=== PATIENT | female | born 1975 | race African-American/Black ===

== ENCOUNTER 2019-08-28 07:32 | Emergency (ER) | payer OTHER, SELFPAY ==
[2019-08-28 07:42] VITALS: BP 141/83; PULSE 70; RESP 14; TEMP 36.4; O2SAT 100
--- NOTE | 2019-08-28 08:30 | ED.HA ---
HPI - Headache General Chief Complaint: Headache Stated Complaint: headache/10 weeks Time Seen by Provider: 08/28/19 07:36 History of Present Illness HPI Narrative: Patient is a 44-year-old female who presents the ER with headache. Has history of migraine headaches and this feels similar. Located originally behind the left eye but now over the lower forehead between the eyes. No change in vision or hearing. She has not been having vomiting but has had some mild nausea. She is currently 10 weeks . Reports she has not been eating or drinking much because nothing tastes good. She is mainly just been eating grapes she reports urinating more frequently but no dysuria/fever/chills. Patient is a G6, P0. Patient reports some slight dizziness with this headache today but not rotational or worsened by turning her head or rolling over. Related Data Home Medications Medication Instructions Recorded Confirmed 08/28/19 alendronate-vitamin D3 08/28/19 aspirin 81 mg PO DAILY 08/28/19 Allergies Allergy/AdvReac Type Severity Reaction Status Date / Time No Known Allergies Allergy Verified 08/28/19 07:45 Review of Systems Review of Systems: All systems reviewed & are unremarkable except as noted in HPI and below Constitutional: Constitutional: Denies chills and Denies fever(s) Eyes: Eyes: Denies change in vision and Denies photophobia ENT: Denies nasal congestion and Denies sore throat Respiratory: Respiratory: Denies cough, Denies dyspnea and Denies wheezing Gastrointestinal: Gastrointestinal: Denies abdominal pain, Denies diarrhea, Reports nausea and Denies vomiting Genitourinary: Genitourinary: Reports nocturia and Denies dysuria Neurologic: Denies dizziness, Reports headache(s), Denies focal weakness and Denies numbness [facility] Past Medical History Medical History (Updated 08/28/19 @ 11:16 by Fantasma Bocanegra MD) GERD (gastroesophageal reflux disease) Surgical History Surgical History (Updated 08/28/19 @ 08:32 by Fantasma Bocanegra MD) History of gastric bypass Family History Family History (Updated 10/06/15 @ 23:19 by DOCTOR UNKNOWN) Mother Hypertension Family history of diabetes mellitus in first degree relative Social History Social History Smoking status: Never smoker Alcohol intake: never Gender identity (if verbalized by the patient): Female Exam Narrative: Exam Narrative: GENERAL: Well-appearing, well-nourished, and in no acute distress. HEAD: Normocephalic, atraumatic. EYES: PERRL and EOMI. ENT: Mucous membranes moist. TMs normal bilaterally and ear canals free of debris. CHEST: Clear to auscultation. No respiratory distress. HEART: Regular rate and rhythm. Normal peripheral pulses. ABDOMEN: Soft, nontender, nondistended. EXTREMITIES: Normal range of motion. No edema. SKIN: Warm, dry, no rash. NEURO: Alert and oriented x3. Course Course Emergency Course: Headache and nausea improved with fluids and Phenergan. Tolerating oral fluids. Discharge home. Vital Signs Vital signs: Vital Signs Temperature 97.5 F L 08/28/19 07:42 Pulse Rate 70 08/28/19 07:42 Respiratory Rate 14 08/28/19 07:42 Blood Pressure 141/83 H 08/28/19 07:42 Pulse Oximetry 100 08/28/19 07:42 Temperature 97.5 F L 08/28/19 07:42 Pulse Rate 70 08/28/19 07:42 Respiratory Rate 14 08/28/19 07:42 Blood Pressure 141/83 H 08/28/19 07:42 Pulse Oximetry 100 08/28/19 07:42 MDM - Headache Lab Data Result diagrams: 08/28/19 08:30 08/28/19 08:30 Labs: Lab Results 08/28/19 08/28/19 08/28/19 Range/Units 08:30 08:30 08:43 WBC 6.7 (4.5-10.0) K/mm3 RBC 4.53 (4.2-5.4) M/mm3 Hgb 13.4 (12.0-15.0) g/dL Hct 39.7 (37.0-47.0) % MCV 87.6 (80-100) fl MCH 29.6 (26-34) pg MCHC 33.8 (32-36) g/dl RDW 13.2 (11.5-14.5) % Plt Count 304 (150-375) k/mm3 MPV 9.2 (7.4-10.4) fl
[2019-08-28] MEDS: SODIUM CHLORIDE 0.9% IV 1,000 ML 999 ML IV CONT (08:31)
[2019-08-28] MEDS: PROMETHAZINE HCL 25 MG/ML AMPUL 12.5 MG IV PUSH (08:32)
[2019-08-28 08:59] LABS: Basophils Percent Auto 0.2 % (0.2-1.2); Eosinophils Absolute Auto 0.1 K/mm3 (0-0.3); Eosinophils Percent Auto 0.9 % (0-4.4); Hematocrit 39.7 % (37.0-47.0); Hemoglobin 13.4 g/dL (12.0-15.0); Immature Granulocyte Absolute 0.02 K/mm3 (0.00-0.031); Immature Granulocyte Percent A 0.3 % (0-0.5); Lymphocytes Absolute Auto 1.85 K/mm3 (0.9-3.2); Lymphocytes Percent Auto 27.8 % (18.3-44.2); Mean Corpuscular HGB Conc 33.8 g/dl (32-36); Mean Corpuscular Hemoglobin 29.6 pg (26-34); Mean Corpuscular Volume 87.6 fl (80-100); Mean Platelet Volume 9.2 fl (7.4-10.4); Monocytes Absolute Auto 0.6 K/mm3 (0.1-0.6); Neutrophils Absolute Auto 4.1 K/mm3 (1.3-6.7); Neutrophils Percent Auto 61.8 % (45.5-73.1); Platelet Count Result 304 k/mm3 (150-375); Red Blood Count 4.53 M/mm3 (4.2-5.4); Red Cell Distribution Width 13.2 % (11.5-14.5); White Blood Count 6.7 K/mm3 (4.5-10.0)
[2019-08-28 09:07] LABS: Blood Urea Nitrogen 7 mg/dL (7-17); Calcium 8.5 mg/dL (8.4-10.2); Carbon Dioxide 23 mmol/L (22-30); Chloride 106 mmol/L (98-107); Estimated CRCL calculation 227 ml/min; Estimated Glomerular Filt Rate > 60; Glucose 88 mg/dL (65-105); Sodium 134 mmol/L (137-145)
[2019-08-28 09:08] LABS: Add Urine Microscopic? YES; Appearance Urine Clear (Clear); Bilirubin Urine Negative (Negative); Blood Urine Negative (Negative); Color Urine Yellow (Yellow); Glucose Urine UA Negative (Negative); Ketones Urine Negative (Negative); Leukocyte Esterase Ur Negative LEU/UL (Negative); Mucus Urine Rare /lpf; Nitrate Urine Negative (Negative); Protein Urine 1+ mg/dL (Negative); RBC Urine 0-2 /hpf (0-2); Specific Grav Ur 1.019 (1.001-1.035); Squamous Epithelial Cell Urine Many /hpf (Few); Urobilinogen Urine Negative mg/dL (<2.0); WBC Urine 0-3 /hpf
[2019-08-28 11:20] VITALS: BP 138/71; PULSE 75; RESP 14; O2SAT 99
== END 2019-08-28 11:27 | disposition home or self-care (01) ==
PROVIDERS: Emergency Provider Emergency Medicine
DX: O26.891 Other specified pregnancy related conditions, first trimester (principal); R51 Headache; Z79.82 Long term (current) use of aspirin; O99.841 Bariatric surgery status complicating pregnancy, first trimester; O99.611 Diseases of the digestive system complicating pregnancy, first trimester; K21.9 Gastro-esophageal reflux disease without esophagitis; Z3A.10 10 weeks gestation of pregnancy
CPT/HCPCS: 36415; 80048; 81001; 81025; 85025; 96361; 96374; 99284; J2550; J7030

== ENCOUNTER 2019-09-02 13:25 | Outpatient (CLI) | payer OTHER, SELFPAY ==
--- NOTE | ~2019-09-02 | US_ITS ---
EXAMINATION: US OB <= 14 weeks fetus DATE: 09/02/2019 14:38 INDICATION: First trimester dating, history of spontaneous TECHNIQUE: Real-time pelvic transabdominal and transvaginal ultrasound was performed. COMPARISON: None. FINDINGS: The uterus measures 14.0 x 7.7 x 7.0 cm. There is an intrauterine gestational sac. A yolk sac is identified. heart motion is identified measuring 155 beats per minute (bpm) by M-mode Do ppler. The crown rump length measures 3.9 cm , which correlates with an estimated gestational a ge of 10 weeks and 6 day(s) (+/-) 7 day(s). The left ovary is not visualized however no left adnexal abnormality is seen. The right ovary measure s 5.0 x 3.9 x 2.8 cm. There is no free fluid in the pelvis. IMPRESSION: 1. Live intrauterine with an estimated gestational age of 10 weeks and 6 day(s) (+/-) 7 day (s) and an estimated delivery date of 03/24/2020. Reviewed, dictated and finalized at location A. IMPRESSION: 1. Live intrauterine with an estimated gestational age of 10 weeks an d 6 day(s) (+/-) 7 day(s) and an estimated delivery date of 03/24/2020.
== END 2019-09-02 13:26 | disposition home or self-care (01) ==
PROVIDERS: PCP Physician Assistant; Visit Provider Obstetrics & Gynecology Gynecology
DX: O26.21 Pregnancy care for patient with recurrent pregnancy loss, first trimester (principal); Z3A.10 10 weeks gestation of pregnancy
CPT/HCPCS: 76801

== ENCOUNTER 2020-02-10 09:57 | Outpatient (CLI) | payer OTHER, SELFPAY ==
--- NOTE | ~2020-02-10 | US_ITS ---
EXAMINATION: US OB limited w BPP DATE: 02/10/2020 13:19 ENROBER TENDER INDICATION: Nonreactive tracing. TECHNIQUE: Real-time transabdominal obstetric ultrasound. FINDINGS: 09/02/2019 There is a single living fetus in breech presentation. The placenta is anterior without placenta pre via. cardiac activity and movement is noted with a heart rate of 151 beats per minute. A FI is normal measuring 20.4 cm. Biophysical profile: breathin of 2 movement: 2 of 2 tone: 2 of 2 Amniotic flud pocket: 2 of 2 Total score: 8 of 8 IMPRESSION: 1. Single living intrauterine in breech presentation. 2: Total biophysical profile score of 8/8. Reviewed, dictated and finalized at location B. BER TENDER
[2020-02-10 10:27] VITALS: BP 104/78; PULSE 86
[2020-02-10 10:31] VITALS: BP 75/56; PULSE 86
[2020-02-10 10:46] VITALS: BP 89/51; PULSE 70
[2020-02-10 11:04] LABS: Basophils Percent Auto 0.3 % (0.2-1.2); Eosinophils Absolute Auto 0.1 K/mm3 (0-0.3); Eosinophils Percent Auto 1.1 % (0-4.4); Hematocrit 35.2 % (37.0-47.0); Immature Granulocyte Absolute 0.08 K/mm3 (0.00-0.031); Immature Granulocyte Percent A 1.1 % (0-0.5); Lymphocytes Absolute Auto 1.42 K/mm3 (0.9-3.2); Lymphocytes Percent Auto 18.7 % (18.3-44.2); Mean Corpuscular HGB Conc 34.1 g/dl (32-36); Mean Corpuscular Hemoglobin 30.4 pg (26-34); Mean Corpuscular Volume 89.1 fl (80-100); Mean Platelet Volume 9.2 fl (7.4-10.4); Monocytes Absolute Auto 0.7 K/mm3 (0.1-0.6); Monocytes Percent Auto 9.3 % (2.6-8.5); Neutrophils Absolute Auto 5.3 K/mm3 (1.3-6.7); Neutrophils Percent Auto 69.5 % (45.5-73.1); Platelet Count Result 254 k/mm3 (150-375); Red Blood Count 3.95 M/mm3 (4.2-5.4); Red Cell Distribution Width 12.4 % (11.5-14.5); White Blood Count 7.6 K/mm3 (4.5-10.0)
[2020-02-10 11:11] LABS: Add Urine Microscopic? YES; Appearance Urine Cloudy (Clear); Bacteria Urine Trace /hpf; Bilirubin Urine Negative (Negative); Blood Urine 1+ (Negative); Color Urine Yellow (Yellow); Glucose Urine UA Negative (Negative); Ketones Urine Negative (Negative); Leukocyte Esterase Ur Negative LEU/UL (NEGATIVE); Mucus Urine Rare /lpf; Nitrate Urine Negative (Negative); Protein Urine Negative (Negative); Specific Grav Ur 1.015 (1.001-1.035); Squamous Epithelial Cell Urine Many /hpf (Few); WBC Urine 0-3 /hpf (0-3)
[2020-02-10 11:15] LABS: Creatinine Urine 129.8 mg/dL; Total Protein Urine Random 9 mg/dL
[2020-02-10 11:17] LABS: Alanine Aminotransferase 15 U/L (4-35); Albumin Level 3.2 g/dL (3.5-5.1); Alkaline Phosphatase 183 U/L (38-126); Anion Gap 3 mmol/L (8-16); Aspartate Amino Transferase 21 U/L (14-36); Bilirubin,Total 0.4 mg/dL (0.2-1.3); Blood Urea Nitrogen 4 mg/dL (7-17); Calcium 8.6 mg/dL (8.4-10.2); Carbon Dioxide 26 mmol/L (22-30); Chloride 105 mmol/L (98-107); Estimated Glomerular Filt Rate > 60; Glucose 82 mg/dL (65-105); Potassium 3.3 mmol/L (3.4-5.0); Sodium 134 mmol/L (137-145)
[2020-02-10 14:03] VITALS: BP 104/78; PULSE 83
== END 2020-02-10 13:45 | disposition home or self-care (01) ==
LOC: ANHOBOP 10:05 → ANHOBPP 10:06
PROVIDERS: PCP Physician Assistant; Visit Provider Obstetrics & Gynecology Gynecology
DX: O13.9 Gestational [pregnancy-induced] hypertension without significant proteinuria, unspecified trimester (principal); Z3A.00 Weeks of gestation of pregnancy not specified
CPT/HCPCS: 36415; 59025; 76815; 76819; 80053; 81001; 82570; 84156; 84550; 85025; 87086; 87088; 99199

== ENCOUNTER 2020-02-15 09:20 | Observation (INO) | payer OTHER, SELFPAY ==
[2020-02-15 09:46] VITALS: BP 119/77; PULSE 90
[2020-02-15 10:01] VITALS: BP 130/66; PULSE 90
[2020-02-15 10:04] LABS: Basophils Percent Auto 0.1 % (0.2-1.2); Eosinophils Absolute Auto 0.1 K/mm3 (0-0.3); Eosinophils Percent Auto 1.3 % (0-4.4); Hematocrit 35.2 % (37.0-47.0); Hemoglobin 11.7 g/dL (12.0-15.0); Immature Granulocyte Absolute 0.08 K/mm3 (0.00-0.031); Immature Granulocyte Percent A 0.9 % (0-0.5); Lymphocytes Absolute Auto 1.67 K/mm3 (0.9-3.2); Lymphocytes Percent Auto 19.1 % (18.3-44.2); Mean Corpuscular HGB Conc 33.2 g/dl (32-36); Mean Corpuscular Hemoglobin 29.6 pg (26-34); Mean Corpuscular Volume 89.1 fl (80-100); Mean Platelet Volume 8.9 fl (7.4-10.4); Monocytes Absolute Auto 0.7 K/mm3 (0.1-0.6); Monocytes Percent Auto 7.6 % (2.6-8.5); Neutrophils Absolute Auto 6.2 K/mm3 (1.3-6.7); Platelet Count Result 265 k/mm3 (150-375); Red Blood Count 3.95 M/mm3 (4.2-5.4); Red Cell Distribution Width 12.5 % (11.5-14.5); White Blood Count 8.7 K/mm3 (4.5-10.0)
[2020-02-15 10:16] VITALS: BP 99/50; PULSE 86
[2020-02-15 10:22] LABS: Alanine Aminotransferase 12 U/L (4-35); Albumin Level 3.2 g/dL (3.5-5.1); Alkaline Phosphatase 193 U/L (38-126); Anion Gap 5 mmol/L (8-16); Aspartate Amino Transferase 18 U/L (14-36); Bilirubin,Total 0.4 mg/dL (0.2-1.3); Blood Urea Nitrogen 6 mg/dL (7-17); Calcium 8.6 mg/dL (8.4-10.2); Carbon Dioxide 24 mmol/L (22-30); Chloride 105 mmol/L (98-107); Estimated Glomerular Filt Rate > 60; Glucose 101 mg/dL (65-105); Potassium 3.7 mmol/L (3.4-5.0); Sodium 134 mmol/L (137-145)
[2020-02-15 10:30] VITALS: BP 130/66; PULSE 83; RESP 16; TEMP 36.8; BMI 51.4
--- NOTE | 2020-02-17 07:50 | PM.OBTRLD ---
OB - Triage/Final Diagnosis Evaluation Laboratory results: Laboratory Tests 02/15/20 02/15/20 09:58 09:58 WBC 8.7 RBC 3.95 L Hgb 11.7 L Hct 35.2 L MCV 89.1 MCH 29.6 MCHC 33.2 RDW 12.5 Plt Count 265 MPV 8.9 Immature Gran % (Auto) 0.9 H Neut % (Auto) 71.0 Lymph % (Auto) 19.1 [place] % (Auto) 7.6 Eos % (Auto) 1.3 Baso % (Auto) 0.1 L Lymph # (Auto) 1.67 [place] # (Auto) 0.7 H Eos # (Auto) 0.1 Baso # (Auto) 0.0 Abs Immat Gran (auto) 0.08 H Absolute Neuts (auto) 6.2 Absolute Nucleated RBC 0.0 Nucleated RBC % 0.0 Sodium 134 L Potassium 3.7 Chloride 105 Carbon Dioxide 24 Anion Gap 5 L BUN 6 L Creatinine 0.50 L Estim Creat Clear Calc Not Reportable Estimated GFR > 60 Glucose 101 Uric Acid 5.0 Calcium 8.6 Total Bilirubin 0.4 AST 18 ALT 12 Alkaline Phosphatase 193 H Total Protein 6.0 L Albumin 3.2 L Final Diagnosis (1) PIH ( induced hypertension): Code(s): O13.9 - Gestational [-induced] hypertension without significant proteinuria, unspecified trimester Status: Acute
== END 2020-02-15 11:10 | disposition home or self-care (01) ==
PROVIDERS: Admitting Provider Obstetrics & Gynecology Gynecology; PCP Physician Assistant; Visit Provider Obstetrics & Gynecology Gynecology
DX: O13.9 Gestational [pregnancy-induced] hypertension without significant proteinuria, unspecified trimester (principal); Z3A.00 Weeks of gestation of pregnancy not specified
CPT/HCPCS: 36415; 59025; 80053; 84550; 85025; G0378; G0379

== ENCOUNTER 2020-02-16 12:09 | Outpatient (NON) | payer OTHER, SELFPAY ==
[2020-02-16 12:35] VITALS: BMI 51.7
[2020-02-16 12:55] LABS: Collection Time Urine 24 HOURS; Total Volume 24 Hour Urine 1700 ml
[2020-02-16 13:03] LABS: Creatinine Clearance Urine 121.5 ml/min (75-125); Creatinine Urine 77.7 mg/dL; Patient Weight 350 Lbs; Total Protein Urine 24 Hr 136 MG/DAY (28-141); Total Protein Urine Random 8 mg/dL
== END 2020-02-16 12:10 ==
LOC: ANHOBOP 12:11
PROVIDERS: PCP Physician Assistant; Visit Provider Obstetrics & Gynecology Gynecology
DX: R51.9 Headache, unspecified (principal); Z20.828 Contact with and (suspected) exposure to other viral communicable diseases
CPT/HCPCS: 81050; 82575; 84156

== ENCOUNTER 2020-03-11 10:39 | Outpatient (RCR) | payer OTHER, SELFPAY ==
--- NOTE | ~2020-03-11 | US_ITS ---
EXAMINATION: US OB BPP wo non-stress DATE: 03/11/2020 13:04 INDICATION: Nonreactive nonstress test. TECHNIQUE: Real-time pelvic ultrasound was performed. The interpreting radiologist was not present fo r the study. COMPARISON: 02/10/2020 FINDINGS: There is a single living fetus in vertex presentation. The placenta is anterior. heart rate is 150 beats per minute (bpm). Biophysical profile performed by the technologist: breathing (30 sec sustained breathing in 30 minutes): 2 out of 2 movement (3 gross body movements in 30 minutes): 2 out of 2 tone (one episode of encyfcf-rvwtuzhqo-aobmwxm limb movement): 2 out of 2 Amniotic fluid pocket (2 cm): 2 out of 2 (largest fluid pocket measures 8.4 cm) Total score: 8 out of 8 IMPRESSION: 1. Single living fetus in vertex presentation with heart rate of 150 bpm. 2. Biophysical profile 8 out of 8. Reviewed, dictated and finalized at location A. RFACE ENGINEER
[2020-03-11 13:10] VITALS: BP 132/61; PULSE 92
== END 2020-03-16 07:29 | disposition home or self-care (01) ==
LOC: ANHOBOP 10:39
PROVIDERS: PCP Physician Assistant; Visit Provider Obstetrics & Gynecology Gynecology
DX: O16.3 Unspecified maternal hypertension, third trimester (principal); O26.03 Excessive weight gain in pregnancy, third trimester; Z3A.38 38 weeks gestation of pregnancy
CPT/HCPCS: 59025; 76819

== ENCOUNTER 2020-03-13 12:06 | Inpatient (IN) | payer OTHER, SELFPAY ==
[2020-03-13] VITALS (41 sets, daily range): BP systolic 88–138; BP diastolic 38–87; PULSE 78–147; TEMP 36.1–36.3; BMI 52.5
--- NOTE | 2020-03-13 12:08 | LDADM ---
This patient, Flavia Sol, was admitted to Labor/Delivery/Recovery 105 on 03/13/20 at 12:06. Plans for labor, pain management and were discussed with patient. Patient/family oriented to hospital policies and general routines including ID bracelet, bed and alarms, visiting hours, pain management, procedures, bathroom and other care routines, personal items, smoking policy, room service/diet and guest tray routines, infant security routines, and visiting hours. Patient/Family are encouraged to report perceived risks to care and to ask questions if they do not understand what they are told or what they should do. See OBIX for further documentation.
[2020-03-13 12:54] LABS: Basophils Percent Auto 0.1 % (0.2-1.2); Eosinophils Percent Auto 0.2 % (0-4.4); Hematocrit 38.1 % (37.0-47.0); Immature Granulocyte Absolute 0.07 K/mm3 (0.00-0.031); Immature Granulocyte Percent A 0.9 % (0-0.5); Lymphocytes Absolute Auto 1.71 K/mm3 (0.9-3.2); Lymphocytes Percent Auto 21.1 % (18.3-44.2); Mean Corpuscular HGB Conc 34.1 g/dl (32-36); Mean Corpuscular Hemoglobin 30.1 pg (26-34); Mean Corpuscular Volume 88.2 fl (80-100); Mean Platelet Volume 8.9 fl (7.4-10.4); Monocytes Absolute Auto 0.8 K/mm3 (0.1-0.6); Monocytes Percent Auto 9.5 % (2.6-8.5); Neutrophils Absolute Auto 5.5 K/mm3 (1.3-6.7); Neutrophils Percent Auto 68.2 % (45.5-73.1); Platelet Count Result 285 k/mm3 (150-375); Red Blood Count 4.32 M/mm3 (4.2-5.4); Red Cell Distribution Width 12.8 % (11.5-14.5); White Blood Count 8.1 K/mm3 (4.5-10.0)
[2020-03-13] MEDS: LACTATED RINGERS 1,000 ML 125 ML IV CONT ×2 (12:59→16:08)
[2020-03-13] MEDS: AMPICILLIN 2 GM/NS 100 ML 2 GM/100 ML BAG IVPB (13:00)
[2020-03-13 13:23] LABS: Glucose Point of Care 71 (65-105)
[2020-03-13] MEDS: DINOPROSTONE 10 MG VAG INSERT VAGINAL (14:28)
[2020-03-13] MEDS: AMPICILLIN 1 GM/NS 50 ML 1 GM/50 ML BAG IVPB ×2 (16:55→21:00)
[2020-03-13 17:05] LABS: Glucose Point of Care 76 (65-105)
[2020-03-13] MEDS: ACETAMINOPHEN 500 MG TABLET 1000 MG PO (21:53)
[2020-03-13] MEDS: INSULIN HUMAN NPH (*BKC) 100 UNITS/ML 6 UNITS SUB-Q (21:54)
[2020-03-13 21:59] LABS: Glucose Point of Care 214 (65-105)
[2020-03-14] VITALS (66 sets, daily range): BP systolic 103–155; BP diastolic 57–106; PULSE 74–102; TEMP 36.1–37.1
[2020-03-14] MEDS: AMPICILLIN 1 GM/NS 50 ML 1 GM/50 ML BAG IVPB ×6 (01:00→21:36)
[2020-03-14] MEDS: LACTATED RINGERS 1,000 ML 125 ML IV CONT ×2 (01:11→07:17)
[2020-03-14 01:18] LABS: Glucose Point of Care 86 (65-105)
[2020-03-14 05:13] LABS: Glucose Point of Care 90 (65-105)
[2020-03-14] MEDS: OXYTOCIN 30 UNITS/NS 500 ML 30 UNITS/500 ML BAG IV CONT (06:54)
--- NOTE | 2020-03-14 07:47 | P.HP_ITS ---
Obstetrics - Admit Note Admission Note: record reviewed. No pertinent additions to the history and/or any subsequent changes in the physical findings that are not consistent with the expected course of the were found. Additions to the history and/or subsequent changes in the physical findings follow. Here for MIL from [facility] office due to decreased variability and decel x 1 they recommended delivery. Cervadil out this am. Now Pitocin running. Cervix Ft/50/-3 Vtx. FHTs minimal variability but no decels. Will attempt continued induction. Patient aware at increased risk of csection for indications.
[2020-03-14 08:59] LABS: Glucose Point of Care 81 (65-105)
[2020-03-14 12:56] LABS: Glucose Point of Care 90 (65-105)
[2020-03-14 17:10] LABS: Glucose Point of Care 76 (65-105)
[2020-03-14] MEDS: fentaNYL CITRATE INJ (*CRX) 100 MCG/2 ML VIAL 50 MCG IV PUSH ×2 (20:01→23:45)
--- NOTE | 2020-03-14 20:20 | PM.OBPNVD ---
OB - PN: Subj Subjective Date/time seen: 03/14/20 20:20 Interval history: Patient given dose of fentanyl to relax cervix /-2 AROM with clear fluid continue MIL OB - PN: Obj Data Labs CBC & Chem 7: 03/13/20 12:48 Labs: Laboratory Results - last 24 hr 03/13/20 03/14/20 03/14/20 21:00 01:03 05:08 POC Capillary Glucose 214 H 86 90 03/14/20 03/14/20 03/14/20 08:56 12:52 17:02 POC Capillary Glucose 81 90 76 OB - PN A/P Time Spent With Patient Time: Total time spent is greater than 50% in coordination of care (as documented) at patient's floor/unit and/or counseling patient:
[2020-03-14 21:41] LABS: Glucose Point of Care 83 (65-105)
[2020-03-15] VITALS (181 sets, daily range): BP systolic 68–148; BP diastolic 39–103; PULSE 60–137; RESP 15–18; TEMP 36.4–36.9; O2SAT 89–100
[2020-03-15] MEDS: LACTATED RINGERS 1,000 ML 125 ML IV CONT ×2 (01:04→11:25)
[2020-03-15] MEDS: AMPICILLIN 1 GM/NS 50 ML 1 GM/50 ML BAG IVPB ×3 (01:19→10:23)
[2020-03-15 01:26] LABS: Glucose Point of Care 83 (65-105)
[2020-03-15] MEDS: ACETAMINOPHEN 500 MG TABLET 1000 MG PO (01:37)
[2020-03-15 06:00] LABS: Glucose Point of Care 82 (65-105)
[2020-03-15] MEDS: OXYTOCIN 30 UNITS/NS 500 ML 30 UNITS/500 ML BAG IV CONT (06:45)
[2020-03-15 07:04] LABS: Rapid Plasma Reagin Non-Reactive (NonReactive)
--- NOTE | 2020-03-15 08:06 | P.PNAN_ITS ---
Anes - Eval Pre Procedure Procedure: Labor Epidural Date/Time: 03/15/20 08:06 Surgeon: Evette Preop Diagnosis: Labor Pain Pre Op Diagnosis: Induction of Labor Patient Data Age: 45 Gender: F Height: 5 ft 9 in Weight: 161.5 kg Last Vital Signs Temp 36.8 C 03/15/20 06:15 Pulse 98 03/15/20 08:00 BP 126/85 03/15/20 08:00 Pulse Ox 98 03/15/20 08:03 Allergies Allergy/AdvReac Type Severity Reaction Status Date / Time SEAFOOD Allergy Itching Uncoded 02/22/20 13:32 Home Medications Medication Instructions Recorded Confirmed Type 08/28/19 History aspirin 81 mg PO DAILY 08/28/19 03/14/20 History insulin NPH isoph U-100 human 6 unit SUBCUT HS 03/13/20 03/13/20 History [Humulin N NPH U-100 Insulin] Laboratory Tests 03/13/20 03/14/20 03/14/20 12:48 08:56 12:52 POC Capillary Glucose 81 mg/dl mg/dl 90 mg/dl mg/dl (65-105) (65-105) RPR Non-reactive (NonReactive) 03/14/20 03/14/20 03/15/20 17:02 21:35 01:18 POC Capillary Glucose 76 mg/dl mg/dl 83 mg/dl mg/dl 83 mg/dl mg/dl (65-105) (65-105) (65-105) RPR 03/15/20 05:57 POC Capillary Glucose 82 mg/dl mg/dl (65-105) RPR : gestational age (SYLVIA 03/24/20) Patient hx anesthesia problems: none Family hx anesthesia problems: none [facility] Past Medical History Medical History GERD (gastroesophageal reflux disease) Surgical History Surgical History History of gastric bypass Family History Family History Mother Family history of diabetes mellitus in first degree relative Hypertension Fatty liver Sibling Hypertension Social History Social History Smoking status: Never smoker Second hand tobacco smoke exposure: Yes Alcohol intake: never Substance use: never Gender identity (if verbalized by the patient): Female Spiritual care concerns: No Exam Day of Procedure 03/15/20 08:06 Patient weight: super morbidly obese Heart: regular rate and rhythm Lungs: normal air movement Airway: Mallampati scale class III Neurological: alert and oriented
[2020-03-15 10:25] LABS: Glucose Point of Care 78 (65-105)
--- NOTE | 2020-03-15 12:02 | PM.IMHP ---
H&P: HPI History of Present Illness Date/Time: 03/15/20 12:02 Chief Complaint: intolerance labor Narrative: Flavia Sol is a 45 year old female at 39 weeks by ultrasound. Patient admitted for IOL due to decels on NST with MFM. complicated by obesity, A2gdm, and recurrent miscarriages. Patient also desires permanent sterilization. Review of Systems Review of Systems: All systems reviewed & are unremarkable except as noted in HPI and below PMFSH Past Medical History Medical History GERD (gastroesophageal reflux disease) Obesity affecting Surgical History Surgical History History of gastric bypass Family History Family History Mother Family history of diabetes mellitus in first degree relative Hypertension Fatty liver Sibling Hypertension Social History Social History Smoking status: Never smoker Second hand tobacco smoke exposure: Yes Alcohol intake: never Substance use: never Gender identity (if verbalized by the patient): Female Spiritual care concerns: No Meds Home Medications and Allergies Home Medications Medication Instructions Recorded Confirmed Type 08/28/19 History aspirin 81 mg PO DAILY 08/28/19 03/14/20 History insulin NPH isoph U-100 human 6 unit SUBCUT HS 03/13/20 03/13/20 History [Humulin N NPH U-100 Insulin] Allergies Allergy/AdvReac Type Severity Reaction Status Date / Time SEAFOOD Allergy Itching Uncoded 02/22/20 13:32 Vital Signs Vital Signs - 24 hr 03/14/20 12:55 03/14/20 15:04 03/14/20 15:31 Temperature 37.1 C Pulse Rate 85 90 Blood Pressure 123/83 124/87 Pulse Oximetry 03/14/20 15:45 03/14/20 16:00 03/14/20 16:11 Temperature 36.7 C Pulse Rate 89 89 Blood Pressure 121/80 129/89 Pulse Oximetry 03/14/20 16:15 03/14/20 16:30 03/14/20 16:45 Temperature Pulse Rate 91 87 90 Blood Pressure 123/72 135/87 119/68 Pulse Oximetry 03/14/20 17:00 03/14/20 17:15 03/14/20 17:30 Temperature 36.7 C Pulse Rate 88 99 90 Blood Pressure 115/87 132/94 H 130/80 Pulse Oximetry 03/14/20 17:52 03/14/20 18:00 03/14/20 18:15 Temperature Pulse Rate 95 101 H 100 Blood Pressure 123/84 128/83 118/64 Pulse Oximetry 03/14/20 18:30 03/14/20 18:45 03/14/20 19:00 Temperature Pulse Rate 97 95 91 Blood Pressure 111/64 114/82 110/68 Pulse Oximetry 03/14/20 19:15 03/14/20 19:45 03/14/20 20:00 Temperature Pulse Rate 85 88 95 Blood Pressure 122/81 137/89 134/92 H Pulse Oximetry 03/14/20 20:15 03/14/20 20:30 03/14/20 20:45 Temperature Pulse Rate 97 89 89 Blood Pressure 139/86 140/94 H 137/86 Pulse Oximetry 03/14/20 21:00 03/14/20 21:15 03/14/20 21:33 Temperature 36.6 C Pulse Rate 88 91 85 Blood Pressure 140/90 136/99 H 135/80 Pulse Oximetry 03/14/20 21:45 03/14/20 22:00 03/14/20 22:15 Temperature Pulse Rate 90 89 88 Blood Pressure 131/92 H 138/86 127/88 Pulse Oximetry 03/14/20 22:30 03/14/20 22:45 03/14/20 23:00 Temperature Pulse Rate 89 87 91 Blood Pressure 133/85 138/88 138/83 Pulse Oximetry 03/14/20 23:15 03/14/20 23:30 03/14/20 23:45 Temperature Pulse Rate 90 91 95 Blood Pressure 134/90 136/86 150/106 H Pulse Oximetry 03/14/20 23:50 03/15/20 00:00 03/15/20 00:30 Temperature 36.5 C Pulse Rate 94 94 Blood Pressure 140/95 H 148/94 H Pulse Oximetry 03/15/20 00:45 03/15/20 01:00 03/15/20 01:19 Temperature 36.6 C Pulse Rate 88 92 Blood Pressure 140/92 H 132/85 Pulse Oximetry 03/15/20 01:30 03/15/20 01:45 03/15/20 02:00 Temperature Pulse Rate 93 97 91 Blood Pressure 134/82 114/88 126/80 Pulse Oximetry 03/15/20 02:15 03/15/20 02:1
[2020-03-15] MEDS: ACETAMINOPHEN 325 MG TABLET 650 MG PO (16:31)
[2020-03-15] MEDS: DOCUSATE SODIUM 100 MG CAPSULE PO (16:31)
--- NOTE | 2020-03-15 16:33 | OBPPTRN ---
1527 Patient transferred to post room #285 via stretcher. Support person present. Oriented to unit, room, information board, rooming in, admission packet and security measures. Patient verbalizes understanding.
[2020-03-15] MEDS: diphenhydrAMINE HCl INJ 50 MG/ML VIAL 12.5 MG IV PUSH (17:32)
[2020-03-15] MEDS: HYDROcodone/acetaminophen (*CRX) 10-325 MG TABLET 1 TAB PO (21:05)
[2020-03-15] MEDS: DEXTROSE 5%/0.45% SOD CHL 1,000 ML 125 ML IV CONT (21:05)
[2020-03-15] MEDS: LORATADINE 10 MG TABLET PO (21:16)
[2020-03-16 01:00] VITALS: BP 121/75; PULSE 101; RESP 18; TEMP 36.6; O2SAT 98
[2020-03-16 05:00] VITALS: BP 105/69; PULSE 75; RESP 16; TEMP 36.2; O2SAT 100
[2020-03-16 05:05] LABS: Basophils Percent Auto 0.2 % (0.2-1.2); Eosinophils Absolute Auto 0.1 K/mm3 (0-0.3); Eosinophils Percent Auto 0.4 % (0-4.4); Hemoglobin 9.9 g/dL (12.0-15.0); Immature Granulocyte Absolute 0.08 K/mm3 (0.00-0.031); Immature Granulocyte Percent A 0.7 % (0-0.5); Lymphocytes Absolute Auto 1.88 K/mm3 (0.9-3.2); Lymphocytes Percent Auto 15.6 % (18.3-44.2); Mean Corpuscular HGB Conc 34.1 g/dl (32-36); Mean Corpuscular Hemoglobin 29.6 pg (26-34); Mean Corpuscular Volume 86.8 fl (80-100); Mean Platelet Volume 8.9 fl (7.4-10.4); Monocytes Absolute Auto 1.7 K/mm3 (0.1-0.6); Neutrophils Absolute Auto 8.3 K/mm3 (1.3-6.7); Neutrophils Percent Auto 69.1 % (45.5-73.1); Platelet Count Result 228 k/mm3 (150-375); Red Blood Count 3.34 M/mm3 (4.2-5.4); Red Cell Distribution Width 12.4 % (11.5-14.5); White Blood Count 12.1 K/mm3 (4.5-10.0)
[2020-03-16] MEDS: DEXTROSE 5%/0.45% SOD CHL 1,000 ML 125 ML IV CONT (05:45)
[2020-03-16] MEDS: HYDROcodone/acetaminophen (*CRX) 10-325 MG TABLET 1 TAB PO ×3 (05:46→19:35)
[2020-03-16] MEDS: DOCUSATE SODIUM 100 MG CAPSULE PO ×2 (07:31→16:22)
[2020-03-16] MEDS: POLYSACCHARIDE IRON COMPLEX 150 MG CAPSULE PO ×2 (07:32→17:00)
[2020-03-16] MEDS: MULTIVIT/MIN/PREN/FOL AC/IRON TABLET 1 TAB PO (07:32)
[2020-03-16] MEDS: LORATADINE 10 MG TABLET PO (07:32)
--- NOTE | 2020-03-16 07:46 | P.PNOB_ITS ---
OB - PN: Subj Subjective Date/time seen: 03/16/20 07:46 Interval history: Patient given dose of fentanyl to relax cervix /2 AROM with clear fluid continue MIL Patient comments: pain well controlled and other (severe itching) baby status: doing well OB - PN: Obj Data Labs CBC & Chem 7: 03/16/20 04:54 Labs: Laboratory Results - last 24 hr 03/15/20 03/16/20 10:22 04:54 WBC 12.1 H RBC 3.34 L Hgb 9.9 L D Hct 29.0 L MCV 86.8 MCH 29.6 MCHC 34.1 RDW 12.4 Plt Count 228 MPV 8.9 Immature Gran % (Auto) 0.7 H Neut % (Auto) 69.1 Lymph % (Auto) 15.6 L [place] % (Auto) 14.0 H Eos % (Auto) 0.4 Baso % (Auto) 0.2 Lymph # (Auto) 1.88 [place] # (Auto) 1.7 H Eos # (Auto) 0.1 Baso # (Auto) 0.0 Abs Immat Gran (auto) 0.08 H Absolute Neuts (auto) 8.3 H Absolute Nucleated RBC 0.0 Nucleated RBC % 0.0 POC Capillary Glucose 78 OB - PN A/P Plan day: 1 Plan: routine care Time Spent With Patient Time: Total time spent is greater than 50% in coordination of care (as documented) at patient's floor/unit and/or counseling patient: Exam Narrative: Exam Narrative: inc c/d/i : Bimanual exam- vagina & uterus: other (Uterus firm, nt @U)
[2020-03-16 07:50] VITALS: PULSE 88; RESP 18; O2SAT 99
[2020-03-16 08:40] VITALS: BP 128/74; PULSE 88; RESP 18; TEMP 37.1; O2SAT 99
--- NOTE | 2020-03-16 10:11 | PM.OBPRVD ---
OB - Delivery Note Procedure Delivery date: 03/16/20 Procedure: Procedures Operation Date: 03/15/20 12:00 Actual Procedures Side Surgeon p Section Arun Benoit MD events: Gestational Diabetes and Labor Induction Intrapartal events: Intolerance Induction method: AROM, per pitocin protocol and per cervidil protocol Delivery monitor: external FHT, external uterine and internal uterine Route of delivery: Quantitative Blood Loss (ml): 290 Anesthesia type: Spinal Disposition: PACU [place] Baby Date of : 03/15/20 Time of : 12:40 Weeks of gestation at delivery: 38 Infant gender: Female Weight (pounds): 7 Weight (ounces): 9 presentation: vertex Placenta delivery description: Spontaneous cord vessel description: 3 Vessels, Nuchal Cord (x2), True Knot and Tight score one minute: 8 score five minutes: 9
--- NOTE | 2020-03-16 10:32 | WPDANLDPN2 ---
Anes-Prog Note L&D Date/Time: 03/16/20 10:32 Comfortable throughout: section Neuraxial method: epidural Epidural/Spinal procedure site: clean & non-tender Neuro status: Neuro function grossly intact. Cardiovascular status: normal Respiratory status: normal Airway patency: baseline Mental status: baseline Post-Op hydration status: normal Vital Signs: Last Vital Signs Temp 37.1 C 03/16/20 08:40 Pulse 88 03/16/20 08:40 Resp 18 03/16/20 08:40 BP 128/74 03/16/20 08:40 Pulse Ox 99 03/16/20 08:40 Pain score (VAS): 2 I/O: Intake & Output 03/15/20 03/16/20 03/16/20 23:59 07:59 15:59 Intake Total 300 2000 Output Total 150 400 Balance 150 1600 Post-procedural complaints: pruritis severe, treatment refractory Patient feedback: Patient satisfied with anesthetic care.
--- NOTE | 2020-03-16 10:32 | WPDANLDNPN2 ---
Anes-Prog Note L&D-Neuraxial Date/Time: 03/16/20 10:32 Neuraxial medications: epidural PF morphine Opiod-related complaints: pruritis severe, treatment refractory Patient feedback: Patient satisfied with post-operative pain management.
[2020-03-16] MEDS: ACETAMINOPHEN 325 MG TABLET 650 MG PO (11:57)
[2020-03-16 12:00] VITALS: BP 142/78; PULSE 94; RESP 16; TEMP 36.7; O2SAT 98
[2020-03-16] MEDS: SIMETHICONE 80 MG TAB.CHEW PO ×2 (14:54→19:50)
--- NOTE | 2020-03-16 17:50 | PM.PROC ---
Procedure Note - Detailed Date of procedure: 03/16/20 Pre-op diagnosis: Induction of Labor FITL Post-op diagnosis: same Procedure performed: LTCS Description of procedure: Patient was taken to the operating room with IV running. She was prepared and draped in a normal sterile fashion and placed in supine position with a leftward tilt. A Pfannenstiel skin incision was made with a scalpel carried down to underlying layer of fascia. This fascia incision was then extended bilaterally with Torrez scissors. The superior aspect of the incision was grasped Anette was elevated off the rectus muscle. Attention was then turned to the inferior aspect of the incision which was grasped with Anette clamps and elevated off the rectus muscles. Rectus muscles were in the midline and peritoneum was entered bluntly bladder blade was inserted. The vesicouterine peritoneum was grasped with pickups and entered sharply with Metzenbaum scissors and bladder flap was created sharply and digitally. Bladder blade was reinserted the lower uterine segment was then incised in a transverse fashion with a scalpel. The incision was extended bluntly the fetus was delivered atraumatically . umbilical cord was cut and cord bloods obtained cord gases were obtained placenta then was delivered spontaneously. Uterus was exteriorized and cleared of all clots and debris the uterine incision was then closed with 0 Monocryl in a running locked fashion. Hemostasis was noted. Attention was then turned to the scalp thinks the right fallopian tube was grasped with Jatinder's transected and suture ligated with 0 vicryl the same procedure was performed performed on the left tube was grasped transfixing suture observed ligated with 0 vicryl. Uterus was returned to the abdomen and the gutters were cleared of all clots debris the abdomen was irrigated. And the fascia and muscles were examined for hemostasis the fascia was closed with 0 Vicryl in a running fashion. The subcutaneous tissue was irrigated and closed with 3 0 plain gut. And the skin was closed with 4 Vicryl on a Kris needle sponge lap and needle counts were correct x2 the patient received 3 g Ancef at skin incision. Anesthesia: spinal Surgeon: Arun Benoit MD Estimated blood loss (mL): 320 Urine output (mL): 200 Drains: Yes Packing: No Pathology: yes Complications: None Condition: stable Disposition: PACU
[2020-03-16 20:00] VITALS: BP 122/79; PULSE 95; RESP 18; TEMP 36.8; O2SAT 100
[2020-03-17] MEDS: HYDROcodone/acetaminophen (*CRX) 10-325 MG TABLET 1 TAB PO ×5 (03:30→23:16)
[2020-03-17] MEDS: SIMETHICONE 80 MG TAB.CHEW PO ×2 (06:03→09:38)
[2020-03-17 08:10] VITALS: BP 133/67; PULSE 87; RESP 18; TEMP 36.6; O2SAT 100
[2020-03-17 08:45] VITALS: PULSE 87; RESP 18; O2SAT 100
[2020-03-17] MEDS: POLYSACCHARIDE IRON COMPLEX 150 MG CAPSULE PO ×2 (09:38→16:30)
[2020-03-17] MEDS: DOCUSATE SODIUM 100 MG CAPSULE PO ×2 (09:38→16:30)
--- NOTE | 2020-03-17 12:16 | PM.OBPNVD ---
OB - PN: Subj Subjective Date/time seen: 03/17/20 12:16 Interval history: doing okay have some muscle aches and pains per patient. OB - PN: Obj Data Labs CBC & Chem 7: 03/16/20 04:54 OB - PN A/P Assessment and Plan (1) Gestational diabetes mellitus (GDM) affecting sixth : Code(s): O24.419 - Gestational diabetes mellitus in , unspecified control; O09.40 - Supervision of with grand multiparity, unspecified trimester Status: Acute (2) Obesity affecting : Code(s): O99.210 - Obesity complicating , unspecified trimester Status: Acute (3) intolerance to labor, delivered, current hospitalization: Code(s): O77.9 - Labor and delivery complicated by stress, unspecified Status: Acute Assessment and Plan: s/p ltcs pod 2 continue with pp care. (4) PIH ( induced hypertension): Code(s): O13.9 - Gestational [-induced] hypertension without significant proteinuria, unspecified trimester Status: Acute Time Spent With Patient Time: Total time spent is greater than 50% in coordination of care (as documented) at patient's floor/unit and/or counseling patient: Exam GI: Other: Incision: C/d/I
[2020-03-17] MEDS: CYCLOBENZAPRINE HCL 10 MG TABLET PO (14:03)
[2020-03-17 19:30] VITALS: BP 131/69; PULSE 97; RESP 18; TEMP 36.6; O2SAT 100
[2020-03-18] MEDS: HYDROcodone/acetaminophen (*CRX) 10-325 MG TABLET 1 TAB PO (05:21)
[2020-03-18] MEDS: POLYSACCHARIDE IRON COMPLEX 150 MG CAPSULE PO (08:01)
[2020-03-18] MEDS: DOCUSATE SODIUM 100 MG CAPSULE PO (08:01)
[2020-03-18 08:30] VITALS: BP 130/79; PULSE 90; RESP 18; TEMP 36.5
[2020-03-18] MEDS: HYDROcodone/acetaminophen (*CRX) 5-325 MG TABLET 1 TAB PO (10:27)
--- NOTE | 2020-03-18 12:22 | PC.NURSE ---
Patient instructed on viewing the discharge video Mother & Baby Care, The First Two Weeks . Patient was given the opportunity and encouraged to ask questions. Patient verbalized understanding of information shared and has been given the mother/baby guide for home reference.
[2020-03-20 10:36] VITALS: BP 121/56; PULSE 71; RESP 20; TEMP 36.6; O2SAT 100
--- NOTE | 2020-03-29 11:40 | PM.OBDSVD ---
DS: Admitting Diagnosis Admitting Diagnosis Admitting Diagnosis: induction of labor, GDM DS: Discharge Diagnosis Discharge Diagnosis (1) Gestational diabetes mellitus (GDM) affecting sixth : Code(s): O24.419 - Gestational diabetes mellitus in , unspecified control; O09.40 - Supervision of with grand multiparity, unspecified trimester Status: Acute (2) PIH ( induced hypertension): Code(s): O13.9 - Gestational [-induced] hypertension without significant proteinuria, unspecified trimester Status: Acute (3) intolerance to labor, delivered, current hospitalization: Code(s): O77.9 - Labor and delivery complicated by stress, unspecified Status: Acute (4) Obesity affecting : Code(s): O99.210 - Obesity complicating , unspecified trimester Status: Acute (5) Single delivery by : Code(s): O82 - Encounter for delivery without indication Status: Acute OB - DS: Summary OB Procedures : NST, PIH Mgmt and Ultrasound OB Procedures Intrapartum: OB Procedures: : P.P. tubal ligation Peripartum Data Procedures: Procedures Operation Date: 03/15/20 12:00 Actual Procedures Side Surgeon p Section Arun Benoit MD Time Spent with Patient Time attestation: Total time spent providing and/or coordinating discharge services: DS: Data Data Completed and Pending Completed studies during hospitalization: Pending at discharge 03/15/20 13:02 Surgical [PTH] Routine Discharge Plan Discharge Attending physician on discharge: Arun Benoit Discharging Clinician: Arun Benoit Patient Disposition: Home, Self-Care Activity: may shower and pelvic rest Diet: regular Discharge Instructions: Education: Mom and Baby Guide Given to: Mother Follow-Up: Call your delivering provider's office for an appointment to be seen in: 1 Week, 6 Weeks Mom and baby should come to the [facility] for the follow-up appointment. Appointment Date/Time: March 20, 2020 at 10:00 am What to expect at your follow-up visit: Physical Assessment Call [phone] if you are unable to keep your appointment time. BREAST CARE: * Wear a snug supportive bra. * For engorgement discomfort: Bottle Feeding: * May apply ice packs ABDOMINAL INCISION: (if applicable) * Allow incision to air dry * Do NOT use lotions for powders on your incision * When showering, allow soap and water to run over the incision, but do not wash incision EPISIOTOMY/PERINEAL CARE: * Until bleeding stops, use your rex bottle after urinating * Change your pad frequently throughout the day * No tub baths until seen by your physician - You may shower ACTIVITY: * Rest as much as possible. * Do not exercise or lift anything heavier than your baby (such as laundry or other children.) * Avoid stairs or driving as much as possible. * Do not put anything into the vagina. No douching, tampons, or sexual activity until seen by physician. NOTIFY PHYSICIAN IF YOU HAVE ANY QUESTIONS OR IF ANY OF THE FOLLOWING SYMPTOMS OCCUR: * If your incision becomes red, swollen, or more painful than what you have experienced in the hospital. * If your vaginal bleeding becomes foul smelling. * If your vaginal bleeding becomes more heavy than a period or if your bleeding changes from pink to bright red. However, you may pass an occasional walnut-sized clot once or twice for the first week . * If you experience a sharp, shooting pain in you calves. * If you discover a hard, reddened area on your breast or if you experience flu-like symptoms. DIET: * Eat regular, well-balanced meals. * Drink plenty of fluids daily. Stand Alone Forms: General Discharge Information Follow-up/Referrals: Arun Benoit MD [Physician] - Discharge Medi
== END 2020-03-18 13:20 | disposition home or self-care (01) | DRG 540 ==
LOC: ANHOB2 03-18 12:24 → ANHLDR 03-22 09:27 → ANHOB2 03-22 09:27
PROVIDERS: Admitting Provider Obstetrics & Gynecology Gynecology; PCP Physician Assistant; Visit Provider Obstetrics & Gynecology
PROC: (CPT 59514; principal; 2020-03-15 12:00)
DX: O24.429 Gestational diabetes mellitus in childbirth, unspecified control (principal); Z37.0 Single live birth; Z3A.38 38 weeks gestation of pregnancy; O13.4 Gestational [pregnancy-induced] hypertension without significant proteinuria, complicating childbirth; O36.8330 Maternal care for abnormalities of the fetal heart rate or rhythm, third trimester, not applicable or unspecified; O99.62 Diseases of the digestive system complicating childbirth; K21.9 Gastro-esophageal reflux disease without esophagitis; O99.214 Obesity complicating childbirth; E66.01 Morbid (severe) obesity due to excess calories; O69.1XX0 Labor and delivery complicated by cord around neck, with compression, not applicable or unspecified; O99.73 Diseases of the skin and subcutaneous tissue complicating the puerperium; L29.9 Pruritus, unspecified
CPT/HCPCS: 36415; 85025; 86592; 86850; 86900; 86901; 88302; 88307; A9270; J0131; J0290; J1200; J1815; J2274; J2370; J2405; J2590; J3010; J7120

== ENCOUNTER 2020-03-27 09:17 | Emergency (ER) | payer OTHER, SELFPAY ==
[2020-03-27] VITALS (26 sets, daily range): BP systolic 98–156; BP diastolic 65–104; PULSE 56–68; RESP 13–23; TEMP 36.4; O2SAT 92–98
[2020-03-27] MEDS: SODIUM CHLORIDE 0.9% IV 1,000 ML 999 ML IV CONT (09:57)
[2020-03-27 10:00] LABS: Basophils Percent Auto 0.4 % (0.2-1.2); Eosinophils Absolute Auto 0.1 K/mm3 (0-0.3); Hematocrit 37.2 % (37.0-47.0); Hemoglobin 12.1 g/dL (12.0-15.0); Immature Granulocyte Absolute 0.01 K/mm3 (0.00-0.031); Immature Granulocyte Percent A 0.2 % (0-0.5); Lymphocytes Absolute Auto 1.67 K/mm3 (0.9-3.2); Lymphocytes Percent Auto 32.7 % (18.3-44.2); Mean Corpuscular HGB Conc 32.5 g/dl (32-36); Mean Corpuscular Hemoglobin 29.3 pg (26-34); Mean Corpuscular Volume 90.1 fl (80-100); Mean Platelet Volume 8.6 fl (7.4-10.4); Monocytes Absolute Auto 0.4 K/mm3 (0.1-0.6); Monocytes Percent Auto 8.4 % (2.6-8.5); Neutrophils Absolute Auto 2.9 K/mm3 (1.3-6.7); Neutrophils Percent Auto 56.3 % (45.5-73.1); Platelet Count Result 424 k/mm3 (150-375); Red Blood Count 4.13 M/mm3 (4.2-5.4); Red Cell Distribution Width 12.7 % (11.5-14.5); White Blood Count 5.1 K/mm3 (4.5-10.0)
[2020-03-27 10:05] LABS: Add Urine Microscopic? YES; Appearance Urine Clear (Clear); Bilirubin Urine Negative (Negative); Blood Urine 3+ (Negative); Color Urine Straw (Yellow); Glucose Urine UA Negative (Negative); Ketones Urine Negative (Negative); Leukocyte Esterase Ur Trace LEU/UL (Negative); Nitrate Urine Negative (Negative); Protein Urine Negative (Negative); RBC Urine 0-2 /hpf (0-2); Specific Grav Ur 1.011 (1.001-1.035); Squamous Epithelial Cell Urine Rare /hpf (Few); Urobilinogen Urine Negative mg/dL (<2.0); WBC Urine 0-3 /hpf
[2020-03-27 10:13] LABS: Alanine Aminotransferase 18 U/L (4-35); Albumin Level 3.4 g/dL (3.5-5.1); Alkaline Phosphatase 191 U/L (38-126); Anion Gap 3 mmol/L (8-16); Aspartate Amino Transferase 25 U/L (14-36); Bilirubin,Total 0.5 mg/dL (0.2-1.3); Blood Urea Nitrogen 6 mg/dL (7-17); Calcium 8.4 mg/dL (8.4-10.2); Carbon Dioxide 29 mmol/L (22-30); Chloride 106 mmol/L (98-107); Estimated CRCL calculation 194 ml/min; Estimated Glomerular Filt Rate > 60; Glucose 83 mg/dL (65-105); Lipase 26 U/L (23-300); Potassium 3.5 mmol/L (3.4-5.0); Sodium 138 mmol/L (137-145)
[2020-03-27 10:33] LABS: CRP 1.9 mg/dL (<1.0)
--- NOTE | 2020-03-27 11:01 | ED.GENADULT ---
HPI - General Adult General Chief complaint: Headache Stated complaint: HTN, SAUCEDA INCISIONAL PAIN AFTER CSECTION Time Seen by Provider: 03/27/20 09:28 Source: patient Mode of arrival: ambulatory Limitations: no limitations History of Present Illness HPI narrative: Patient is a 45-year-old female who presents to emergency department for evaluation of headache that persisted through the night taking Tylenol with minimal improvement patient notes she had a at 39 weeks by ultrasound patient is G6, P1. Patient notes some mild discomfort of the left margin of her incision denies drainage fever chills nausea vomiting URI symptoms vaginal bleeding or discharge. Patient notes that she is not currently breast-feeding Related Data Allergies Allergy/AdvReac Type Severity Reaction Status Date / Time SEAFOOD Allergy Itching Uncoded 03/27/20 09:37 Review of Systems Review of Systems: All systems reviewed & are unremarkable except as noted in HPI and below PMFSH Past Medical History Medical History GERD (gastroesophageal reflux disease) Obesity affecting Surgical History Surgical History History of gastric bypass Family History Family History Mother Family history of diabetes mellitus in first degree relative Hypertension Fatty liver Sibling Hypertension Social History Social History Smoking status: Never smoker Second hand tobacco smoke exposure: Yes Alcohol intake: never Substance use: never Gender identity (if verbalized by the patient): Female Spiritual care concerns: No Exam Narrative: Exam Narrative: GENERAL: Well-appearing, obese, and in no acute distress. HEAD: Normocephalic, atraumatic. EYES: PERRLA and EOMI. ENT: Nares clear, no rhinorrhea or epistaxis. Mucous membranes moist. CHEST: Clear to auscultation. No respiratory distress. No wheezes rales or rhonchi HEART: Regular rate and rhythm. No murmur heard. Normal peripheral pulses. ABDOMEN: Soft, nontender, nondistended, patient's incision intact well approximated no erythema slight tenderness along the left margin EXTREMITIES: Normal range of motion. No edema. SKIN: Warm, dry, no rash. NEURO: No focal deficits. Alert and oriented x3. Cranial nerves II through XII grossly intact. Normal speech PSYCH: Normal mood and affect. Course Course Emergency Course: Patient evaluated in the emergency department feeling better with interventions aware of discussion with her environmental field technician patient will facilitate a closer follow-up has been given reasons to return and agrees to do so if symptoms worsen patient with blood pressure of 136/87 has been in this range during her visit environmental field technician was made aware of this would like the patient to continue to follow her blood pressure at home and to be sent home on Fioricet for her headache. Patient agrees with this plan ABCs intact vital signs stable Consultations Consultation #1: Case discussed with environmental field technician Dr. Alas will follow the patient in clinic patient to be sent home on Fioricet made aware of her vital signs and clinical findings and patient's headache Date: 03/27/20 Time: 12:22 Vital Signs Vital signs: Vital Signs Temperature 97.5 F L 03/27/20 09:28 Pulse Rate 64 03/27/20 09:28 Respiratory Rate 16 03/27/20 09:28 Blood Pressure 151/87 H 03/27/20 09:28 Pulse Oximetry 96 03/27/20 09:28 Temperature 97.5 F L 03/27/20 09:28 Pulse Rate 64 03/27/20 09:28 Respiratory Rate 16 03/27/20 09:28 Blood Pressure 151/87 H 03/27/20 09:28 Pulse Oximetry 96 03/27/20 09:28 Medical Decision Making MDM Narrative Medical decision making narrative: Patient in the room in no distress aware of case findings treatment plan
[2020-03-27] MEDS: KETOROLAC 15 MG/ML VIAL (*BKC) 10 MG IV PUSH (11:50)
== END 2020-03-27 12:46 | disposition home or self-care (01) ==
PROVIDERS: Emergency Medicine Emergency Medical Services; Emergency Provider Emergency Medicine; PCP Physician Assistant
DX: O90.89 Other complications of the puerperium, not elsewhere classified (principal); R51.9 Headache, unspecified; Z48.01 Encounter for change or removal of surgical wound dressing; O99.63 Diseases of the digestive system complicating the puerperium; K21.9 Gastro-esophageal reflux disease without esophagitis; O99.215 Obesity complicating the puerperium; E66.9 Obesity, unspecified; O99.845 Bariatric surgery status complicating the puerperium
CPT/HCPCS: 36415; 80053; 81001; 83690; 85025; 86140; 96361; 96365; 96375; 99284; J0131; J1885; J7030

== ENCOUNTER 2021-01-16 19:23 | Observation (INO) | payer OTHER, SELFPAY ==
--- NOTE | ~2021-01-16 | NM_ITS ---
EXAMINATION: NM rajiv stress w perfusion DATE: 01/17/2021 13:57 INDICATION: Chest pain. TECHNIQUE: Rest images were obtained following intravenous administration of 11.2 mCi Tc99m tetrofosm in (Myoview). The patient was infused intravenously with Lexiscan (regadenoson). Then, 31.2 mCi Tc99m tetrofosmin (Myoview) was administered intravenously, and stress images were obtained. Data was zach nstructed into short axis and horizontal and vertical long axis SPECT images. Gated SPECT images were also obtained. COMPARISON: Chest CT 01/16/2021 FINDINGS: There is no definite reversible or fixed perfusion abnormality to suggest ischemia or infar ction. There is no segmental wall motion abnormality. Left ventricular ejection fraction measures 6 2%. IMPRESSION: 1. No definite ischemia or infarct. 2. Normal left ventricular ejection fraction measuring 62%. Reviewed, dictated and finalized at location A. ET POLISHER
--- NOTE | ~2021-01-16 | XR_ITS ---
EXAMINATION: XR chest 2V EXAM DATE: 01/16/2021 19:55 INDICATION: L Sided Chest Pressure, Midsternal Cp, Weakness, Anxiety . TECHNIQUE: Frontal and lateral projections of the chest obtained and reviewed. Comparison is made to prior examination from 12/30/14. FINDINGS: The lungs are clear. There are no pleural effusions. The cardiomediastinal silhouette is within normal limits. There is no pneumothorax suspected. The bones and soft tissues are unremarkab le. IMPRESSION: No acute cardiopulmonary findings. Reviewed, dictated and finalized at location A. RING MECHANIC
--- NOTE | ~2021-01-16 | CT_ITS ---
EXAMINATION: CTA chest PE protocol EXAM DATE: 01/16/2021 23:08 INDICATION: Chest pain. TECHNIQUE: Spiral CTA of the chest (pulmonary arteries) was performed with 100 cc Omnipaque 350 intr avenous contrast injection. Images were acquired during the pulmonary arterial phase. Coronal maxi mum intensity projection 3D-reconstructions were created by the technologist on dedicated workstation . Axial, coronal and sagittal reformatted images were reviewed. The dose-length product (DLP) for t his examination was 976.55 mGy-cm. The exposure was tailored according to patient size (auto mA exp osure control), and iterative reconstruction (ASIR) was used as additional dose reduction technique. There is no prior study for comparison. FINDINGS: Pulmonary arteries are well opacified and without intraluminal filling defects. No thora cic aortic dissection. The lungs are clear. There are no pleural or pericardial effusions. Trach eobronchial tree is patent. There is no mediastinal, hilar or axillary lymphadenopathy. There is no pneumothorax. Heart normal in size. No evidence of coronary arterial calcification. There is some thymic residual. There is a low density region along the right side of the anterior med iastinum which appears rounded, well-defined, measuring 4.4 x 3.6 maximal AP dimensions, appears to p artially insinuate between aorta and pulmonary artery. This is most likely a benign finding such as p ericardial or thymic cyst. Gastric bypass surgical changes. There is thoracic spondylosis without os teoblastic or osteolytic lesions identified. IMPRESSION: 1. No pulmonary emboli or acute cardiopulmonary findings. 2. 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 Reviewed, dictated and finalized at location A. HT CONTROL TOWER OPERATOR
[2021-01-16 19:29] VITALS: BP 141/83; PULSE 79; RESP 18; TEMP 36.3; O2SAT 99
--- NOTE | 2021-01-16 19:33 | ECG_ITS ---
Measurements Intervals [place] Rate: 76 P: 26 IL: 141 QRS: -6 QRSD: 92 T: 11 QT: 381 QTc: 428 Interpretive Statements SINUS RHYTHM DELAYED PRECORDIAL R/S TRANSITION VOLTAGE CRITERIA FOR LVH BASELINE ARTIFACT- I, III, AVL BORDERLINE ECG Electronically Signed On 01-16-2021 20:19:04 WELL CONTROL INSTRUCTOR by Roberto Long D.O.
[2021-01-16 19:51] LABS: Basophils Percent Auto 0.2 % (0.2-1.2); Eosinophils Percent Auto 0.1 % (0-4.4); Hematocrit 41.4 % (37.0-47.0); Hemoglobin 13.8 g/dL (12.0-15.0); Immature Granulocyte Absolute 0.03 K/mm3 (0.00-0.031); Immature Granulocyte Percent A 0.3 % (0-0.5); Lymphocytes Absolute Auto 1.23 K/mm3 (0.9-3.2); Lymphocytes Percent Auto 14.3 % (18.3-44.2); Mean Corpuscular HGB Conc 33.3 g/dl (32-36); Mean Corpuscular Hemoglobin 29.1 pg (26-34); Mean Corpuscular Volume 87.3 fl (80-100); Mean Platelet Volume 9.2 fl (7.4-10.4); Monocytes Absolute Auto 0.6 K/mm3 (0.1-0.6); Monocytes Percent Auto 7.2 % (2.6-8.5); Neutrophils Absolute Auto 6.7 K/mm3 (1.3-6.7); Neutrophils Percent Auto 77.9 % (45.5-73.1); Platelet Count Result 371 k/mm3 (150-375); Red Blood Count 4.74 M/mm3 (4.2-5.4); Red Cell Distribution Width 14.9 % (11.5-14.5); White Blood Count 8.6 K/mm3 (4.5-10.0)
[2021-01-16 20:02] LABS: Alanine Aminotransferase 17 U/L (4-35); Alkaline Phosphatase 223 U/L (38-126); Anion Gap 6 mmol/L (8-16); Aspartate Amino Transferase 21 U/L (14-36); Bilirubin,Total 0.4 mg/dL (0.2-1.3); Blood Urea Nitrogen 13 mg/dL (7-17); Calcium 8.5 mg/dL (8.4-10.2); Carbon Dioxide 26 mmol/L (22-30); Chloride 107 mmol/L (98-107); Estimated CRCL calculation 138 ml/min; Estimated Glomerular Filt Rate > 60; Glucose 116 mg/dL (65-110); Potassium 3.6 mmol/L (3.4-5.0); Sodium 139 mmol/L (137-145)
--- NOTE | 2021-01-16 21:42 | ED.WEAKNESS ---
HPI - Weakness General Chief complaint: Weakness Stated complaint: weakness. chest tightness. Time Seen by Provider: 01/16/21 21:25 Source: patient and RN notes reviewed History of Present Illness HPI Narrative: Patient is a 45 y/o female complaining of mid sternal chest pain starting 5-6 hours ago. She describes her chest discomfort as a pressure and rates it as 8/10. There is no alleviating or exacerbating factor. However, her chest discomfort resolved spontaneously. She also has been feeling weak for 2 days. Related Data Allergies Allergy/AdvReac Type Severity Reaction Status Date / Time SEAFOOD Allergy Itching Uncoded 01/16/21 19:34 Review of Systems Constitutional: Constitutional: Denies chills, Denies fever(s), Denies headache(s) and Reports weakness Eyes: Eyes: Denies blurry vision ENT: Denies headache(s) and Denies neck pain Cardiovascular: Cardiovascular: Reports chest pain and Denies dyspnea Respiratory: Respiratory: Denies cough and Denies dyspnea Gastrointestinal: Gastrointestinal: Denies abdominal pain, Denies diarrhea, Denies nausea and Denies vomiting Genitourinary: Genitourinary: Denies hematuria and Denies dysuria Musculoskeletal: Musculoskeletal: Denies back pain and Denies neck pain Neurologic: Denies headache(s) and Denies weakness [facility] Past Medical History Medical History GERD (gastroesophageal reflux disease) Obesity affecting Single delivery by Surgical History Surgical History History of gastric bypass Family History Family History Mother Family history of diabetes mellitus in first degree relative Hypertension Fatty liver Sibling Hypertension Social History Social History Smoking status: Never smoker Second hand tobacco smoke exposure: Yes Alcohol intake: never Substance use: never Gender identity (if verbalized by the patient): Female Spiritual care concerns: No Exam Const: General: no acute distress and well developed Orientation/consciousness: oriented to person, oriented to place, oriented to time and patient oriented x3 HENMT: Head: normocephalic Ears: external ears normal General nose exam: Normal external nose present Eyes: General: appearance normal, both eyes and all related structures Conjunctivae: conjunctivae normal Neck: Neck: normal visual inspection and full ROM Chest: Chest palpation & inspection: normal inspection of the chest and no tenderness Resp: Effort & Inspection: normal respiratory effort Auscultation: clear to auscultation bilaterally Cardio: Rate: regular rate Rhythm: regular rhythm GI: GI Palp: No abdominal tenderness and Yes Soft to palpation Skin: General skin exam: normal color and turgor normal Neuro: General: oriented to person, oriented to place, oriented to time and patient oriented x3 Cognition (Neuro): normal cognition Extrem: General: normal to inspection, full ROM and no pedal edema Psych: Appearance: grossly normal Mental Status: mental status grossly normal Affect: normal affect Course Consultations Consultation #1: Discussed with Dr. Bates, who agrees to admit. She recommends ordering Lexican and Echo for AM. Date: 01/17/21 Time: 00:48 Vital Signs Vital signs: Vital Signs Temperature 36.3 C L 01/16/21 19:29 Pulse Rate 79 01/16/21 19:29 Respiratory Rate 18 01/16/21 19:29 Blood Pressure 141/83 H 01/16/21 19:29 Pulse Oximetry 99 01/16/21 19:29 Temperature 36.3 C L 01/16/21 19:29 Pulse Rate 62 01/17/21 00:37 Respiratory Rate 18 01/17/21 00:37 Blood Pressure 151/95 H 01/17/21 00:37 Pulse Oximetry 98 01/17/21 00:37 MDM - Weakness Lab Data Result diagrams: 01/16/21 19:42 01/16/21 19:42 Labs: Lab Result
[2021-01-16 21:58] LABS: D Dimer 1.52 ug/mL (<0.48)
[2021-01-16 22:08] LABS: Troponin I < 0.012 ng/mL (0.000-0.034)
[2021-01-16 22:20] VITALS: BP 128/72; PULSE 66; RESP 17; O2SAT 100
[2021-01-16 22:53] LABS: Add Urine Microscopic? YES; Appearance Urine Cloudy (Clear); Bilirubin Urine Negative (Negative); Blood Urine Negative (Negative); Color Urine Yellow (Yellow); Glucose Urine UA Negative (Negative); Ketones Urine Negative (Negative); Leukocyte Esterase Ur Negative LEU/UL (Negative); Mucus Urine Rare /lpf; Nitrate Urine Negative (Negative); Protein Urine Negative (Negative); Specific Grav Ur 1.021 (1.001-1.035); Squamous Epithelial Cell Urine Moderate /hpf (Few); Urobilinogen Urine Negative mg/dL (<2.0); WBC Urine 0-3 /hpf
[2021-01-17] VITALS (12 sets, daily range): BP systolic 113–157; BP diastolic 53–99; PULSE 52–68; RESP 16–18; TEMP 36.2–36.8; O2SAT 98–100; BMI 47.2; BMI 47.5
--- NOTE | 2021-01-17 | EST_ITS ---
Patient Info Name: Flavia Sol Age: 45 years : 1975 Gender: Female Ht: 69 in Wt: 319 lbs BSA: 2.73 m2 HR: 85 bpm BP: 145 / 83 mmHg Heart Rhythm: Sinus Rhythm Exam Date: 01/17/2021 12:45 PM Exam Location: [facility] Stress Patient Status: Outpatient Admit Date: 01/17/2021 Staff Ordering Physician: Jeimy Arambula MD Attending Provider: Marley Johnson PA-C Exercise Technologist: Rhoda Amanda CT Exercise Physician: Chelsea Greer MD Exam Type: CA stress rajiv w NM Study Info Indications R07.9 - Chest pain, unspecified A regadenoson stress test was performed. Summary 1. No abnormal ST-T wave changes with lexiscan. 2. Nuclear test results to follow. Protocol: Lexiscan Stress ECG Details Stage: REST Duration (min): 1 min : 24 sec HR (bpm): 53 SBP (mmHg): 145 DBP (mmHg): 83 Stage: REST Duration (min): 16 min : 15 sec HR (bpm): 55 SBP (mmHg): 145 DBP (mmHg): 83 Stage: STAGE 1 Duration (min): 0 min : 59 sec HR (bpm): 86 SBP (mmHg): 154 DBP (mmHg): 63 Stage: RECOVERY Duration (min): 1 min : 0 sec HR (bpm): 64 SBP (mmHg): 154 DBP (mmHg): 63 Stage: RECOVERY Duration (min): 2 min : 0 sec HR (bpm): 61 SBP (mmHg): 154 DBP (mmHg): 63 Stage: RECOVERY Duration (min): 3 min : 0 sec HR (bpm): 58 SBP (mmHg): 125 DBP (mmHg): 75 Stage: RECOVERY Duration (min): 3 min : 7 sec HR (bpm): 60 SBP (mmHg): 125 DBP (mmHg): 75 Rest HR: 55 bpm Peak HR: 86 bpm Rest Sys BP: 145 mmHg Peak Sys BP: 154 mmHg Max Pred HR: 177 bpm % Max Pred HR: 49 % Target HR: 150 bpm Max RPP: 13,244 bpm*mmHg BP Response: Normal blood pressure response Termination Reason: Completed protocol Cardiac Symptoms: None Total Time: 1 min : 0 sec Rest Moura BP: 83 mmHg Peak Moura BP: 63 mmHg Total Dose: 0.4 mg Resting ECG Normal sinus rhythm - normal ECG. Stress ECG No abnormal ST/T wave changes with exercise. Arrhythmias None. Report Signatures
--- NOTE | 2021-01-17 00:55 | PC.NURSE ---
PT up walking around requesting to be discharged and IV taken out. RN and MD spoke with patient Iv taken out. After discussion with MD pt being admitted and new IV placed.
--- NOTE | 2021-01-17 01:00 | PC.NURSE ---
Pt placed back into a gown and placed back on monitor.
[2021-01-17 01:10] LABS: Troponin I < 0.012 ng/mL (0.000-0.034)
--- NOTE | 2021-01-17 04:00 | PC.NURSE ---
Pt back in clothes requesting iv to be taken out told RN if her gets here before her bed becomes available she is leaving. IV taken out. Pt is ok to stay for now.
[2021-01-17 05:06] LABS: Troponin I < 0.012 ng/mL (0.000-0.034)
--- NOTE | 2021-01-17 07:30 | PC.NURSE ---
Pt resting quietly does not keep on monitoring
--- NOTE | 2021-01-17 09:45 | PC.NURSE ---
Gave report to [facility] RN
--- NOTE | 2021-01-17 10:30 | ADMGEN ---
This patient, Flavia Sol, was admitted to [facility]. Patient/family oriented to hospital policies and general routines including ID bracelet, bed and alarms, visiting hours, pain management, procedures, bathroom and other care routines, personal items, smoking policy, room service/diet, and visiting hours. Information on how to activate the Rapid Response Team has been discussed. Patient/Family are encouraged to report perceived risks to care and to ask questions if they do not understand what they are told or what they should do.
--- NOTE | 2021-01-17 11:57 | PC.NURSE ---
DOWN VIA WC TO LEXISCAN STRESS TEST.
--- NOTE | 2021-01-17 13:58 | PC.NURSE ---
RETURNS TO BEE RAISER 2 POST LEXISCAN NM STRESS TEST.
--- NOTE | 2021-01-17 15:00 | PC.NURSE ---
ROSSI MATHEWS HERE TO SEE PT. BEDSIDE. AWARE OF RESULTS OF STRESS TEST.
--- NOTE | 2021-01-17 15:25 | PM.SD2 ---
Same Day Admit/Disch: HPI History of Present Illness Chief complaint: Chest Pain Narrative: Date of service: 01/17/2021 Flavia Sol is a 45 year old female with a history of GERD and in March 2020 who presented to the emergency department after not feeling well for 2 days. She had just not been feeling right and felt like she might pass out. She had an episode of chest tightness in the midsternal region that she described as a squeezing sensation that lasted 2 hours. She felt like she was having a difficult time breathing. Initially she thought it was gas, but it did persist. She did not have associated diaphoresis, nausea, vomiting, arm pain, or jaw pain. Eventually after taking some deep breaths she felt she was able to calm herself down and her pain eased. She felt that she might have had a panic attack. She notes that she has had a lot on her plate recently with taking care of her baby and has not been caring for herself as well as she typically would. She had not been sleeping. Upon presentation to the emergency department, her vital signs were stable, she was afebrile, CBC and BMP unremarkable, troponin negative, D-dimer slightly elevated at 1.52, CXR showed no acute cardiopulmonary findings, and CTA of the chest was negative for pulmonary embolism. She was admitted to the hospitalist service for observation. On my initial evaluation, her symptoms had resolved entirely and she was feeling back to her usual state of health with the exception of some mild lightheadedness. Subsequent troponins were negative. I reviewed her EKG which showed no ST changes or evidence for ischemia. She underwent Lexiscan stress testing which showed no abnormal ST-T-wave changes, no evidence of ischemia or infarct, and normal EF of 62%. Her atypical chest pain was unlikely cardiac in nature. Her HEART score is 1, indicating low risk for major cardiac event. Based on her overall assessment, it seems as though anxiety was the predominating factor here. She admits to increased stress and anxiety. I spoke with her about following up with her PCP for anxiety management. Also discussed with her the benefits of seeing a counselor. We discussed some other methods to help manage her stress including taking time to care for herself, doing meditation or yoga. She plans to follow-up with her primary care provider to discuss her anxiety. She did have a mildly elevated D-dimer. CTA was negative for PE. Venous Doppler not performed as she was asymptomatic and Wells score for DVT was 0. Of note, her CTA showed incidental finding of anterior mediastinal cystic mass that was rounded and well-defined measuring 4.4 x 3.6. I discussed these findings with radiologist, Dr. Contreras, at length. [place] to be highly likely benign cystic lesion of the pericardium or thymus. No further follow-up imaging is required, however if further testing is desired by the patient, could consider MRI without and with contrast for more definitive testing. This would indicate if lesion was fluid filled. Alternative option is follow-up chest CT without contrast in 6 months. Histologic correlation not recommended. I did speak with the patient's PCP to discuss her hospital stay and review radiology recommendations for follow-up of incidental mediastinal finding. Her PCP will schedule a follow-up appointment to discuss the patient's anxiety and will discuss follow-up imaging options if desired. The patient was feeling back to her usual state of health and requested discharge home. Given her overall improvement, she was determined to no longer require inpatient care and was felt to be stable for discharge. We discussed worrisome signs and symptoms for which to return and she was educated on her medications. She was discharged in hemodynamically stable condition on 01/17/2021. [facility] Past Medical History Medical History (Updated 01/17/21 @ 17:43 by Marley Johnson PA-C) GERD (gastro
--- NOTE | 2021-01-17 16:50 | PC.NURSE ---
DISCHARGED HOME, OUT VIA WC TO 'S WAITING CAR WITH ALL PERSONAL BELONGINGS AND DISCHARGE PACKET. VOICES NO C/O. NO DISTRESS NOTED.
== END 2021-01-17 16:50 | disposition home or self-care (01) ==
LOC: ANHED 01-17 01:40 → ANHIMU 01-17 03:42 → ANHCPC 01-17 11:10 → ANHIMU 01-18 12:12
PROVIDERS: Admitting Provider Internal Medicine; Emergency Provider Emergency Medicine; PCP Physician Assistant; Visit Provider Internal Medicine
DX: R07.9 Chest pain, unspecified (principal); F41.9 Anxiety disorder, unspecified; R79.89 Other specified abnormal findings of blood chemistry; J98.59 Other diseases of mediastinum, not elsewhere classified; K21.9 Gastro-esophageal reflux disease without esophagitis; E66.9 Obesity, unspecified; I10 Essential (primary) hypertension; Z68.42 Body mass index [BMI] 45.0-49.9, adult
CPT/HCPCS: 36415; 71046; 71275; 78452; 80053; 81001; 81025; 84484; 85025; 85380; 93005; 93017; 96374; 99285; A9502; G0378; G0379; J0131; J2785; Q9967

== ENCOUNTER 2021-02-19 07:54 | Outpatient (CLI) | payer OTHER, SELFPAY ==
--- NOTE | ~2021-02-19 | XR_ITS ---
EXAMINATION: XR UGIAC w barium swallow DATE: 02/19/2021 08:34 INDICATION: Status post bariatric surgical procedure presenting with recent weight gain TECHNIQUE: The patient drank thick barium, gas-producing crystals, and thin barium. A total of 1307 f luoroscopic images of the hypopharynx, esophagus, stomach and proximal small bowel were obtained. Flu oroscopy exposure time was 2.5 minutes. Total DAP was 18.326 mGycm^2 COMPARISON: CT dated 01/16/2021 FINDINGS: The pharynx is symmetric and without evidence of mass lesion or mucosal irregularity. The esophagus i s normal without mass or stricture. Esophageal motility is normal. There is no hiatal hernia. Postope rative change of the gastric bypass procedure. Contrast rapidly emptied from the small gastric remnan t cross the gastrojejunal anastomosis with no evident obstruction. There was no gastroesophageal refl ux with provocative maneuvers. The contrast opacified portions of the small bowel are normal. IMPRESSION: 1. Expected appearance post gastric bypass procedure. Reviewed, dictated and finalized at location A. TH CARE MARKETING SPECIALIST
== END 2021-02-19 07:55 | disposition home or self-care (01) ==
LOC: ANHIMG 07:56
PROVIDERS: PCP Physician Assistant; Visit Provider Physician Assistant
DX: Z98.84 Bariatric surgery status (principal); R22.2 Localized swelling, mass and lump, trunk
CPT/HCPCS: 74246

== ENCOUNTER 2021-03-26 10:43 | Outpatient (CLI) | payer OTHER, SELFPAY ==
--- NOTE | ~2021-03-26 | US_ITS ---
EXAMINATION: US pelvic complete w TV DATE: 03/26/2021 11:24 INDICATION: Menorrhagia TECHNIQUE: Multiple transabdominal and endovaginal sonographic images of the pelvis were obtained. COMPARISON: None. FINDINGS: The uterus measures 8.5 x 5.6 x 4.7 cm. The endometrial complex measures 8 mm in thickness. There ar e couple 5 mm anechoic nabothian cysts at the cervix. The right ovary measures 3.4 x 2.2 x 2.1 cm. Pr essure flow with arterial waveforms in the right ovary. The left ovary is not visualized. There is no free fluid in the pelvis. IMPRESSION: 1. Normal pelvic ultrasound. Reviewed, dictated and finalized at location A. [facility]
== END 2021-03-26 10:44 | disposition home or self-care (01) ==
LOC: ANHIMG 10:47
PROVIDERS: PCP Nurse Practitioner Family; Visit Provider Obstetrics & Gynecology Gynecology
DX: N92.0 Excessive and frequent menstruation with regular cycle (principal)
CPT/HCPCS: 76830; 76856

== ENCOUNTER → 2021-06-01 02:29 | Outpatient (CLI) | payer OTHER, SELFPAY ==
[2021-06-01 11:40] LABS: SARS-CoV-2 RNA PCR Negative
== END ==
PROVIDERS: PCP Nurse Practitioner Family; Visit Provider Obstetrics & Gynecology Gynecology
DX: Z01.812 Encounter for preprocedural laboratory examination (principal); Z20.822 Contact with and (suspected) exposure to COVID-19
CPT/HCPCS: C9803; U0003; U0005

== ENCOUNTER 2021-06-04 01:00 | Day surgery (SDC) | payer OTHER, SELFPAY ==
[2021-04-27 15:18] VITALS: BMI 45.3
--- NOTE | 2021-04-27 15:36 | PC.NURSE ---
Report to the Outpatient Waiting Room, entrance under the green pavilion located off [facility], at time 0600 on date 05/07/21. OR Time: 0730. - You and your visitor will be asked a series of questions to screen for COVID 19 for your protection. - A mask is required within the hospital. One visitor will be allowed to accompany the patient into the hospital. Patients visitor will be instructed to remain with patient at all times or leave the building. We will allow the visitor to come back to the postoperative area when patient is ready. Preoperative COVID Testing Requirements: COVID TEST 05/04 AT 0900 No COVID Test needed if: (proof is required; if not received patient will have Rapid Test prior to entry) - Patient has received COVID Vaccine at least 14 days prior to procedure date or - Patient has positive COVID test result within last 90 days of surgery date. COVID Test needed if above criteria is not met If not COVID vaccinated a COVID test must be conducted within 72 hours of surgery and patient is asked to isolate self from time of testing until procedure. You will go to the [facility] for your COVID testing. The [facility] is located at the corner of [address] [facility]. You will only be called if COVID results are positive and your surgeon may reschedule your elective surgery date. Patients may have clear liquids (water, carbonated beverages, clear teas, apple juice) until 3 hours prior to surgery with a maximum of 20 ounces. - No food from midnight until time of surgery Take the following medications with a SIP of water the morning of surgery: AMLODIPINE Medications to discontinue per physician: VITAMINS Date to take last dose: 05/03/21 Please no make-up, nail indonesian, hairspray, perfume, deodorant, or body powder the day of surgery. No jewelry (including any body piercings) or valuables the day of surgery, leave them at home. Please take a shower or bath the night before, or the morning of, surgery with an antibacterial soap. Wear comfortable, loose fitting clothing. - Jewelry must be removed prior to entering the operating room. Rings and piercings that are not removed may be cut off. - The hospital will not accept responsibility for valuables. - Please leave all valuables, including medications, at home the day of surgery. If you are going home after surgery, a licensed mechanic welder truck driver must drive you home. - NO public transportation without another adult. - We recommend that an adult stay with you for 24 hours following discharge. - We also recommend that you do not drive, make important decision, drink alcoholic beverages, or take any drugs that were not prescribed by your health care provider for at least 24 hours after your discharge time. Follow any additional instructions given to you from your surgeon. Telephone instructions given to FARHAN ECHOLS and asked if any additional questions and then verbalized understanding. Patient advised to call surgeon office or pre surgery nurse liaison [phone] if any additional questions.
--- NOTE | 2021-05-24 14:05 | PC.NURSE ---
Report to the Outpatient Waiting Room, entrance under the green pavilion located off [facility], at time _0715_ on date _06-04-2021_. OR Time: _0915__. - You and your visitor will be asked a series of questions to screen for COVID 19 for your protection. - A mask is required within the hospital. Preoperative COVID Testing Requirements: Covid test 06-01-2021 at 9am. No COVID Test needed if: (proof is required; if not received patient will have Rapid Test prior to entry) - Patient has received COVID Vaccine at least 14 days prior to procedure date or - Patient has positive COVID test result within last 90 days of surgery date. COVID Test needed if above criteria is not met If not COVID vaccinated a COVID test must be conducted within 72 hours of surgery and patient is asked to isolate self from time of testing until procedure. You will go to the [facility] for your COVID testing. The [facility] is located at the corner of [address] [facility]. You will only be called if COVID results are positive and your surgeon may reschedule your elective surgery date. Patients may have clear liquids (water, carbonated beverages, clear teas, apple juice) until 3 hours prior to surgery with a maximum of 20 ounces. - No food from midnight until time of surgery - Infants may have breast milk until 4 hours before surgery, formula 6 hours prior to surgery. - Children will be allowed to drink immediately following surgery. If applicable, please bring a bottle or sippy cup to assist with drinking. Juice, water, soda, and popsicles are readily available. For infants on formula, please bring formula the day of surgery. Pacifiers are allowed. Take the following medications with a SIP of water the morning of surgery: Medications to discontinue per physician Date to take last dose Please no make-up, nail belizean, hairspray, perfume, deodorant, or body powder the day of surgery. No jewelry (including any body piercings) or valuables the day of surgery, leave them at home. Please take a shower or bath the night before, or the morning of, surgery with an antibacterial soap. Wear comfortable, loose fitting clothing. Children are encouraged to wear pajamas. - Jewelry must be removed prior to entering the operating room. Rings and piercings that are not removed may be cut off. - The hospital will not accept responsibility for valuables. - Please leave all valuables, including medications, at home the day of surgery. If you are going home after surgery, a licensed patrol driver must drive you home. - NO public transportation without another adult. - We recommend that an adult stay with you for 24 hours following discharge. - We also recommend that you do not drive, make important decision, drink alcoholic beverages, or take any drugs that were not prescribed by your health care provider for at least 24 hours after your discharge time. For Pediatric surgeries, we recommend two adults accompany the child home (only one inside the building at this time). One visitor will be allowed to accompany the patient into the hospital. Patients visitor will be instructed to remain with patient at all times or leave the building. We will allow the visitor to come back to the postoperative area when patient is ready. Follow any additional instructions given to you from your surgeon. Telephone instructions given to __Patient____and asked if any additional questions and then verbalized understanding. Patient advised to call surgeon office or pre surgery nurse liaison [phone] if any additional questions.
--- NOTE | 2021-06-04 07:19 | WPDHPUPDATE1 ---
History and Physical Update Update Date/Time: 06/04/21 07:19 History and Physical has been reviewed, including an updated exam of the patient. There are NO changes in the patient's condition. Risks, benefits, and alternatives have been discussed and questions answered. Patient agrees to proceed with procedure.
[2021-06-04] MEDS: LACTATED RINGERS 1,000 ML 30 ML IV CONT (07:20)
--- NOTE | 2021-06-04 07:20 | PM.HPGS ---
History of Present Illness History of Present Illness Consent: Risks, benefits, and alternatives have been discussed and questions answered. Patient agrees to proceed with procedure. Chief complaint: menorrhaghia Narrative: Flavia Sol is a 46 year old female with cycles occurring every 2 weeks for several cycles cycles. Flow has been fairly normal and lasting 4 to 5 days each cycle. Patient was seen in January of 2021 and had normal blood work. Then she did not follow up with her ultrasound until March 26 which revealed a basically normal ultrasound. It was recommended to proceed with D&C hysteroscopy to further evaluate the abnormal bleeding. Risks of infection, bleeding, perforation, and possible pathology were reviewed. The patient was originally scheduled for April 16. This was rescheduled to May 07. And then it was rescheduled to today. Patient voiced understanding and agrees to proceed. Review of Systems Constitutional: Constitutional: Reports lethargy Gastrointestinal: Gastrointestinal: Reports abdominal pain Musculoskeletal: Musculoskeletal: Reports back pain and Reports arthralgias PMFSH Past Medical History Medical History (Updated 06/04/21 @ 07:26 by Christina Alas MD) GERD (gastroesophageal reflux disease) Neck pain Obesity affecting Single delivery by 03/15/2020 Spontaneous X4 Surgical History Surgical History (Updated 06/04/21 @ 07:25 by Christina Alas MD) H/O abdominoplasty History of carpal tunnel surgery of right wrist History of section History of gastric bypass 2013 Family History Family History (Updated 01/17/21 @ 17:43 by Marley Johnson PA-C) Mother Family history of diabetes mellitus in first degree relative Hypertension Fatty liver Sibling Hypertension Father No active medical problems Social History Social History (Updated 01/17/21 @ 17:45 by Marley Johnson PA-C) Social History: Ms. Sol lives at home with her infant. 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 Her PCP is Irasema Hyde PA-C. She denies alcohol use, tobacco use, or substance abuse. Smoking status: Never smoker Alcohol intake: never Substance use type: marijuana Other substance usage details: Hx of marijuana use Living arrangements: with family Additional living arrangements comments: CHILD Gender identity (if verbalized by the patient): Female Spiritual care concerns: No Meds Home Medications and Allergies Home Medications Medication Instructions Recorded Confirmed Type multivitamin with minerals 1 tablet PO DAILY 01/17/21 04/27/21 History amlodipine 10 mg PO DAILY 04/27/21 04/27/21 History lisinopril 10 mg PO DAILY 04/27/21 04/27/21 History Allergies Allergy/AdvReac Type Severity Reaction Status Date / Time SEAFOOD Allergy Itching Uncoded 06/04/21 07:06 Exam Const: General: healthy appearing and alert Orientation/consciousness: patient oriented x3 GI: GI Palp: Yes Soft to palpation, No Tenderness to palpation present (GI) and No Palpable mass present : External Female Exam: normal external appearance Speculum Exam - Vagina: normal appearance of the vagina and normal vaginal discharge Speculum Exam - Cervix: normal appearance of the cervix Bimanual exam- vagina & uterus: uterine size normal and consistency normal Bimanual Exam- Adnexa, other: normal adnexae and No adnexal tenderness Neuro: General: patient oriented x3 Assessment and Plan Assessment and plan (1) Menorrhagia: Code(s): N92.0 - Excessive and frequent menstruation with regular cycle Status: Acute Assessment and Plan: Plan to proceed with D&C hysteroscopy
[2021-06-04] MEDS: ACETAMINOPHEN 500 MG TABLET 1000 MG PO (07:21)
[2021-06-04 07:32] VITALS: BP 111/52; PULSE 62; RESP 18; TEMP 36.5; O2SAT 99
--- NOTE | 2021-06-04 07:43 | P.PNAN_ITS ---
Anes - Initial Pre Proc Eval Procedure: Operation Date: 06/04/21 09:15 Proposed Procedures p Hysteroscopy, Dilatation and Curettage - Christina Alas MD Date/Time: 06/04/21 07:43 Surgeon: Christina Alas MD Pre Op Diagnosis: menorrhaghia Patient Data Age: 46 Gender: F Height: 1.75 m Weight: 144.2 kg Last Vital Signs Temp 36.5 C 06/04/21 07:32 Pulse 62 06/04/21 07:32 Resp 18 06/04/21 07:32 BP 111/52 L 06/04/21 07:32 Pulse Ox 99 06/04/21 07:32 Allergies Allergy/AdvReac Type Severity Reaction Status Date / Time SEAFOOD Allergy Itching Uncoded 06/04/21 07:06 Home Medications Medication Instructions Recorded Confirmed Type multivitamin with minerals 1 tablet PO DAILY 01/17/21 04/27/21 History amlodipine 10 mg PO DAILY 04/27/21 04/27/21 History lisinopril 10 mg PO DAILY 04/27/21 04/27/21 History Patient hx anesthesia problems: none Family hx anesthesia problems: none Results Review: All pre-operative results and documents have been reviewed as part of the pre-operative evaluation. [facility] Past Medical History Medical History (Updated 06/04/21 @ 07:26 by Christina Alas MD) GERD (gastroesophageal reflux disease) Neck pain Obesity affecting Single delivery by 03/15/2020 Spontaneous X4 Surgical History Surgical History (Updated 06/04/21 @ 07:25 by Christina Alas MD) H/O abdominoplasty History of carpal tunnel surgery of right wrist History of section History of gastric bypass 2013 Family History Family History (Updated 01/17/21 @ 17:43 by Marley Johnson PA-C) Mother Family history of diabetes mellitus in first degree relative Hypertension Fatty liver Sibling Hypertension Father No active medical problems Social History Social History (Updated 01/17/21 @ 17:45 by Marley Johnson PA-C) Social History: Ms. Sol lives at home with her . 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 Her PCP is Irasema Hyde PA-C. She denies alcohol use, tobacco use, or substance abuse. Smoking status: Never smoker Alcohol intake: never Substance use type: marijuana Other substance usage details: Hx of marijuana use Living arrangements: with family Additional living arrangements comments: CHILD Gender identity (if verbalized by the patient): Female Spiritual care concerns: No Anes - Eval Final PreProcedure Day of Procedure 06/04/21 07:43 Patient weight: obese Heart: regular rate and rhythm Lungs: clear to auscultation and normal air movement Airway: Mallampati scale class II Neurological: alert and oriented Last oral intake: >/= 8 hours ASA classification: III Emergent: no Anesthetic plan: proceed Anesthesia type and monitoring: general LMA Results Review: All pre-operative results and documents have been reviewed as part of the pre-operative evaluation. Informed Consent: The patient's anesthetic plan and its attendant risks and benefits were discussed with the patient/family/POA. Questions were solicited and answers provided to the satisfaction of the patient/family/POA.
[2021-06-04] MEDS: KETOROLAC 30 MG/ML VIAL (*BKC) IV PUSH (09:24)
--- NOTE | 2021-06-04 09:28 | P.OP_ITS ---
Procedure Note - Detailed Date of Procedure 06/04/21 Pre-op Diagnosis menorrhaghia Post-op Diagnosis Same Procedure Performed D&C hysteroscopy Surgeon Christina Alas MD Anesthesia MAC and Local Findings The uterus sounds to 10cm. The posterior wall appears thickened without discrete lesions. Remainder of the endometrium appears grossly normal Description of Procedure The patient is taken to the operating room and placed under anesthesia in the dorsal lithotomy position. She was prepped and draped in the usual sterile fashion. [place] speculum was placed in the vagina, cervix is grasped on the anterior lip with a tenaculum, and the cervix is injected in each quadrant with 1% lidocaine. The uterus is sounded to 10cm. The cervix is serially dilated to an 8 Hegar. The diagnostic hysteroscope was placed with the above-stated findings. The hysteroscope was removed and the medium sharp curette used to curette the endometrium until a good uterine cry was noted in all areas. All instruments are removed. Sponge, needle, and instrument counts are correct per the OR staff. The patient is awakened from anesthesia and taken to recovery in stable condition. Estimated Blood Loss 5 Drains No Packing No Pathology Yes (Endometrial curettings) Complications No immediate complications Condition Stable Disposition PACU
[2021-06-04 09:34] VITALS: BP 128/84; PULSE 73; RESP 16; O2SAT 98
[2021-06-04 10:04] VITALS: BP 141/94; PULSE 75; RESP 16
== END 2021-06-04 10:15 | disposition home or self-care (01) ==
PROVIDERS: PCP Nurse Practitioner Family; Visit Provider Obstetrics & Gynecology Gynecology
PROC: 0U5B8ZZ Destruction of Endometrium, Via Natural or Artificial Opening Endoscopic (ICD-10-PCS; CPT 58563; principal; 2021-06-04 09:15)
DX: N92.0 Excessive and frequent menstruation with regular cycle (principal); Z98.84 Bariatric surgery status; E66.01 Morbid (severe) obesity due to excess calories; Z68.42 Body mass index [BMI] 45.0-49.9, adult
CPT/HCPCS: 58558; 88305; A9270; J1100; J1885; J2250; J2405; J2704; J3010; J7030; J7120

== ENCOUNTER 2022-05-27 01:34 | Day surgery (SDC) | payer OTHER, SELFPAY ==
[2022-01-23 07:57] VITALS: BMI 45.1
--- NOTE | 2022-01-23 08:02 | PC.NURSE ---
Addendum entered by Mee Hastings RN 03/01/22 09:34: PT TO ARRIVE AT 0845 ON 03/18/22 FOR SURGERY AT 1045. Original Note: Report to the Outpatient Waiting Room, entrance under the green pavilion located off [facility], at time _0600_ on date _[id number]_. Planned Procedure Time: _0730_. Time changes happen often and if your time is changed the preop area will call you the afternoon before. - You and your visitor will be asked to self-screen and do not enter if you have any COVID symptoms. - Only one visitor is requested with a max of two and NO children visitors are allowed at this time. - The patient visitor may be requested to leave or wait in car when not with patient due to distancing restrictions. - A mask is optional within the hospital. Patients may have clear liquids (water, carbonated beverages, clear teas, apple juice) until 3 hours prior to surgery with a maximum of 20 ounces. - No food from midnight until time of surgery Take the following medications with a SIP of water the morning of surgery: __Amlodipine Medications to discontinue per physician Vitamins Date to take last bljl___[id number] Please no make-up, nail korean, hairspray, perfume, deodorant, or body powder the day of surgery. No jewelry (including any body piercings) or valuables the day of surgery, leave them at home. Please take a shower or bath the night before, or the morning of, surgery with an antibacterial soap. Wear comfortable, loose fitting clothing. - Jewelry must be removed prior to entering the operating room. Rings and piercings that are not removed may be cut off. - The hospital will not accept responsibility for valuables. - Please leave all valuables, including medications, at home the day of surgery. If you are going home after surgery, a licensed high lift driver must drive you home. - NO public transportation without another adult if you receive anesthesia. - We recommend that an adult stay with you for 24 hours following discharge. - We also recommend that you do not drive, make important decision, drink alcoholic beverages, or take any drugs that were not prescribed by your health care provider for at least 24 hours after your discharge time. Follow any additional instructions given to you from your surgeon. If you or anyone in your household have experienced Covid symptoms in the past week, please notify your surgeon or the nurse liaison at the phone number below for possible testing. Telephone instructions given to __Patient___and asked if any additional questions and then verbalized understanding. Patient advised to call surgeon office or pre surgery nurse liaison [phone] if any additional questions.
[2022-05-14 13:06] VITALS: BMI 45.1
--- NOTE | 2022-05-14 13:11 | PC.NURSE ---
Addendum entered by Mee Hastings RN 05/14/22 14:39: PT TO ARRIVE AT 0900 ON 05/27/22 FOR SURGERY AT 1100. Original Note: Report to the Outpatient Waiting Room, entrance under the green pavilion located off [facility], at time 0600 on date 05/27/22. Planned Procedure Time: 0730. Time changes happen often and if your time is changed the preop area will call you the afternoon before. - You and your visitor will be asked to self-screen and do not enter if you have any COVID symptoms. - Only one visitor is requested with a max of two and NO children visitors are allowed at this time. - The patient visitor may be requested to leave or wait in car when not with patient due to distancing restrictions. - A mask is optional within the hospital at this time. Patients may have clear liquids (water, carbonated beverages, clear teas, apple juice) until 3 hours prior to surgery with a maximum of 20 ounces. - No food from midnight until time of surgery Take the following medications with a SIP of water the morning of surgery: AMLODIPINE DO NOT STOP ANY OF YOUR OTHER PRESCRIPTION MEDICATIONS PRIOR TO SURGERY?EXCEPT THE FOLLOWING Medications to discontinue per physician: VITAMINS/SUPPLEMENTS Date to take last dose: 05/23/22 Please no make-up, nail kosovan, hairspray, perfume, deodorant, or body powder the day of surgery. No jewelry (including any body piercings) or valuables the day of surgery, leave them at home. Please take a shower or bath the night before, or the morning of, surgery with an antibacterial soap. Wear comfortable, loose fitting clothing. - Jewelry must be removed prior to entering the operating room. Rings and piercings that are not removed may be cut off. - The hospital will not accept responsibility for valuables. - Please leave all valuables, including medications, at home the day of surgery. If you are going home after surgery, a licensed helper/driver must drive you home. - NO public transportation without another adult if you receive anesthesia. - We recommend that an adult stay with you for 24 hours following discharge. - We also recommend that you do not drive, make important decision, drink alcoholic beverages, or take any drugs that were not prescribed by your health care provider for at least 24 hours after your discharge time. Follow any additional instructions given to you from your surgeon. If you or anyone in your household have experienced Covid symptoms in the past week, please notify your surgeon or the nurse liaison at the phone number below for possible testing. Telephone instructions given to LIVE - FARHAN ECHOLS and asked if any additional questions and then verbalized understanding. Patient advised to call surgeon office or pre surgery nurse liaison [phone] if any additional questions.
[2022-05-27] MEDS: LACTATED RINGERS 1,000 ML 30 ML IV CONT (06:30)
--- NOTE | 2022-05-27 06:48 | WPDANESEPPF ---
Anes - Initial Pre Proc Eval Procedure: Operation Date: 05/27/22 11:00 Proposed Procedures p Hysteroscopy, Lida Endometrial Ablation - Christina Alas MD Date/Time: 05/27/22 06:48 Surgeon: Christina Alas MD Pre Op Diagnosis: menorrhaghia Patient Data Age: 47 Gender: F Height: 1.75 m Weight: 138.6 kg Allergies Allergy/AdvReac Type Severity Reaction Status Date / Time shellfish derived Allergy Mild Itching Verified 05/14/22 13:05 Home Medications Medication Instructions Recorded Confirmed Type multivitamin with minerals 1 tablet PO DAILY 01/17/21 05/14/22 History amlodipine 10 mg tablet 10 mg PO DAILY 04/27/21 05/14/22 History lisinopril 10 mg tablet 40 mg PO DAILY 04/27/21 05/14/22 History cetirizine 10 mg tablet 10 mg PO DAILY PRN Allergy Symptoms 01/23/22 05/14/22 History fremanezumab-vfrm 225 mg/1.5 mL 10 mg subcut MONTHLY 01/23/22 05/14/22 History subcutaneous syringe (Ajovy Syringe) Patient hx anesthesia problems: none Family hx anesthesia problems: none Results Review: All pre-operative results and documents have been reviewed as part of the pre-operative evaluation. FOR[facility]LY [facility] Past Medical History Medical History GERD (gastroesophageal reflux disease) Neck pain Obesity affecting Single delivery by 03/15/2020 Spontaneous X4 Surgical History Surgical History H/O abdominoplasty History of carpal tunnel surgery of right wrist History of section History of gastric bypass 2013 Family History Family History Mother Family history of diabetes mellitus in first degree relative Hypertension Fatty liver Sibling Hypertension Father No active medical problems Social History Social History Social History: Ms. Sol lives at home with her infant. 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 Her PCP is Irasema Hyde PA-C. She denies alcohol use, tobacco use, or substance abuse. Smoking status: Never smoker Alcohol intake: never Substance use: former Substance use type: marijuana Other substance usage details: Hx of marijuana use Living arrangements: with family Additional living arrangements comments: CHILD Gender identity (if verbalized by the patient): Female Spiritual care concerns: No Anes - Eval Final PreProcedure Day of Procedure 05/27/22 06:48 Patient weight: morbidly obese Heart: regular rate and rhythm Lungs: clear to auscultation Airway: Mallampati scale class II Neurological: alert and oriented Last oral intake: >/= 8 hours ASA classification: III Emergent: no Anesthetic plan: proceed Anesthesia type and monitoring: general LMA and standard monitoring Results Review: All pre-operative results and documents have been reviewed as part of the pre-operative evaluation. Informed Consent: The patient's anesthetic plan and its attendant risks and benefits were discussed with the patient/family/POA. Questions were solicited and answers provided to the satisfaction of the patient/family/POA.
[2022-05-27] MEDS: ACETAMINOPHEN 500 MG TABLET 1000 MG PO (07:00)
--- NOTE | 2022-05-27 07:12 | WPDHPUPDATE1 ---
History and Physical Update Update Date/Time: 05/27/22 07:12 History and Physical has been reviewed, including an updated exam of the patient. There are NO changes in the patient's condition. Risks, benefits, and alternatives have been discussed and questions answered. Patient agrees to proceed with procedure.
--- NOTE | 2022-05-27 07:12 | PM.HPGS ---
History of Present Illness History of Present Illness Consent: Risks, benefits, and alternatives have been discussed and questions answered. Patient agrees to proceed with procedure. Chief complaint: menorrhaghia Narrative: Flavia Sol is a 47 year old female Here for Lida endometrial ablation secondary to heavy frequent cycles. Risks of infection, bleeding, perforation, and success are reviewed. Patient voices understanding and agrees to proceed. Review of Systems Review of Systems: not repeated day of surgery; patient states no changes in status PMFSH Past Medical History Medical History (Updated 05/27/22 @ 07:15 by Christina Alas MD) GERD (gastroesophageal reflux disease) Hypertension Spontaneous X4 Surgical History Surgical History (Updated 05/27/22 @ 07:15 by Christina Alas MD) H/O abdominoplasty History of carpal tunnel surgery of right wrist History of section History of gastric bypass 2014 History of hysteroscopy May of 2021 Family History Family History Mother Family history of diabetes mellitus in first degree relative Hypertension Fatty liver Sibling Hypertension Father No active medical problems Social History Social History Social History: Ms. Sol lives at home with her infant. 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 Her PCP is Irasema Hyde PA-C. She denies alcohol use, tobacco use, or substance abuse. Smoking status: Never smoker Alcohol intake: never Substance use: former Substance use type: marijuana Other substance usage details: Hx of marijuana use Living arrangements: with family Additional living arrangements comments: CHILD Gender identity (if verbalized by the patient): Female Spiritual care concerns: No Meds Home Medications and Allergies Home Medications Medication Instructions Recorded Confirmed Type multivitamin with minerals 1 tablet PO DAILY 01/17/21 05/14/22 History amlodipine 10 mg tablet 10 mg PO DAILY 04/27/21 05/14/22 History lisinopril 10 mg tablet 40 mg PO DAILY 04/27/21 05/14/22 History cetirizine 10 mg tablet 10 mg PO DAILY PRN Allergy Symptoms 01/23/22 05/14/22 History fremanezumab-vfrm 225 mg/1.5 mL 10 mg subcut MONTHLY 01/23/22 05/14/22 History subcutaneous syringe (Ajovy Syringe) Allergies Allergy/AdvReac Type Severity Reaction Status Date / Time shellfish derived Allergy Mild Itching Verified 05/14/22 13:05 Exam Narrative: BMI 45 Const: General: healthy appearing and alert Orientation/consciousness: patient oriented x3 Resp: Effort & Inspection: normal respiratory effort GI: GI Palp: Yes Soft to palpation, No Tenderness to palpation present (GI) and No Palpable mass present : External Female Exam: normal external appearance Speculum Exam - Vagina: normal appearance of the vagina and normal vaginal discharge Speculum Exam - Cervix: normal appearance of the cervix Bimanual exam- vagina & uterus: uterine size normal and consistency normal Bimanual Exam- Adnexa, other: normal adnexae and No adnexal tenderness Neuro: General: patient oriented x3 Assessment and Plan Assessment and plan (1) Menorrhagia: Code(s): N92.0 - Excessive and frequent menstruation with regular cycle Status: Acute Assessment and Plan: plan to proceed with Lida endometrial ablation
[2022-05-27 07:28] VITALS: BP 132/86; PULSE 70; RESP 16; TEMP 36.6; O2SAT 100
[2022-05-27] MEDS: LIDOCAINE HCL 1% LOCAL INJ 20 ML VIAL 10 ML INFILTRATE (07:43)
[2022-05-27 07:55] VITALS: BP 110/96; PULSE 87; RESP 17; O2SAT 100
--- NOTE | 2022-05-27 07:56 | W.PM.PROC2 ---
Procedure Note - Detailed Date of Procedure 05/27/22 Pre-op Diagnosis menorrhaghia Post-op Diagnosis Same Procedure Performed Lida endometrial ablation Surgeon Christina Alas MD Anesthesia MAC and Local Findings uterus sounds to 8cm and appears grossly Description of Procedure the patient is taken to the operating room and placed under anesthesia in the dorsal lithotomy position. She was prepped and draped in usual sterile fashion. [place] speculum was placed in the vagina and the cervix grasped on the anterior lip with a tenaculum. The uterus is sounded to 8cm. The cervix is injected in each quadrant with 1% lidocaine. The hysteroscope was placed with no abnormalities noted it is removed. The cervix is serially dilated to an 8 [place]. The Lida device is opened and placed. Cavity assessment passed on the 1st attempt. Treatment cycle lasted the full 2minutes with a setting of 5cm. The device is removed and the hysteroscope replaced with a good ablation effect noted. All instruments are removed. The patient is awakened from anesthesia and taken to recovery in stable condition. Sponge, needle, and instrument counts are correct per the OR staff. Estimated Blood Loss 5 Drains No Packing No Pathology None sent Complications No immediate complications Condition Stable Disposition PACU
[2022-05-27 08:15] VITALS: BP 106/62; PULSE 56; RESP 12; O2SAT 100
[2022-05-27 08:35] VITALS: BP 110/68; PULSE 62; RESP 20
== END 2022-05-27 08:37 | disposition home or self-care (01) ==
PROVIDERS: PCP Nurse Practitioner Family; Visit Provider Obstetrics & Gynecology Gynecology
PROC: 0U5B8ZZ Destruction of Endometrium, Via Natural or Artificial Opening Endoscopic (ICD-10-PCS; CPT 58563; principal; 2022-05-27 11:00)
DX: N92.0 Excessive and frequent menstruation with regular cycle (principal); Z98.84 Bariatric surgery status; E66.01 Morbid (severe) obesity due to excess calories; Z68.42 Body mass index [BMI] 45.0-49.9, adult
CPT/HCPCS: 58563; A9270; J2250; J2704; J3010; J7120